=== PATIENT | female | born 1985 | race Caucasian/White ===

== ENCOUNTER 2019-04-04 07:57 | Emergency (ER) | payer SELFPAY ==
[~2019-04-04] VITALS: Ht 152.4 cm; Wt 59.0 kg
[2019-04-04] MEDS ORDERED: ASPIRIN 81 MG CHEW (CHILDREN'S ASA) PO STA (08:16)
[2019-04-04] MEDS ORDERED: NS IV 1000 ML 1,000 ML IV ONE (08:16)
[2019-04-04 08:25] LABS: HEMOGLOBIN 12.2 G/DL (11.5-16.0); WHITE BLOOD COUNT 10.8 10^3/uL (4.3-11.0)
[2019-04-04] MEDS ORDERED: RT-ALBUTEROL/IPRATROPIUM 3 ML (DUONEB) VIAL ONE (08:25)
[2019-04-04 08:26] LABS: BASOPHILS % (AUTO) 0 % (0-10); EOSINOPHILS # (AUTO) 0.3 10^3/uL (0.0-0.3); EOSINOPHILS % (AUTO) 3 % (0-10); HEMATOCRIT 36 % (35-52); LYMPHOCYTES # (AUTO) 2.3 X 10^3 (1.0-4.0); LYMPHOCYTES % (AUTO) 22 % (12-44); MEAN CORPUSCULAR HEMOGLOBIN 27 PG (25-34); MEAN CORPUSCULAR HGB CONC 34 G/DL (32-36); MEAN CORPUSCULAR VOLUME 80 FL (80-99); MEAN PLATELET VOLUME 10.4 FL (7.4-10.4); MONOCYTES % (AUTO) 9 % (0-12); NEUTROPHILS # (AUTO) 7.1 X 10^3 (1.8-7.8); NEUTROPHILS % (AUTO) 66 % (42-75); PLATELET COUNT 292 10^3/uL (130-400)
[2019-04-04] MEDS ORDERED: RT-ALBUTEROL/IPRATROPIUM 3 ML (DUONEB) VIAL INH ONE (08:30)
[2019-04-04] MEDS ORDERED: LORazepam INJ 2 MG/ML (ATIVAN) VIAL IVP ONE (08:30)
--- NOTE | 2019-04-04 08:35 | ED Chest Pain ---
General Chief Complaint: Chest Pain Stated Complaint: CHEST PAIN Nursing Triage Note: PT CO OF CHEST PAIN X 4 DAYS, PT HAS FREQUENT COUGH. PT STATES C/P RAIDATES FROM L CHEST TO L LEG. Nursing Sepsis Screen: No Definite Risk Source: patient Exam Limitations: no limitations History of Present Illness Date Seen by Provider: Apr 04, 2019 Time Seen by Provider: 08:11 Initial Comments Here with report of left-sided chest pain that radiates down the chest to the leg. Associated with cough that has been going on for 4 days. She is quite anxious and report shortness of breath. States that she has vegetations on her heart valve and was told that if she ever had breathing problems that it may be related to that. She apparently had an extended stay at in the past for this. Complains of tingling to her hands and legs and is hyperventilating. Timing/Duration: changing over time, 3-4 days Severity/Quality: moderate Location: central (left-sided) Radiation: other (left lower chest, abdomen and leg on the left) Activities at Onset: none Prior CP/Workup: echocardiography ASA po PST SUPERVISOR: No NTG SL PST SUPERVISOR: No Associated Symptoms: abdominal pain; No back pain, No diaphoresis, No fever/chills; nausea/vomiting, shortness of breath Allergies and Home Medications Allergies Coded Allergies: No Known Drug Allergies (Unverified , 04/04/19) Home Medications No Active Prescriptions or Reported Meds Patient Home Medication List Home Medication List Reviewed: Yes Review of Systems Review of Systems Constitutional: see HPI, chills; No fever EENTM: Nose Congestion; No Throat Pain Respiratory: Cough, Shortness of Air, Wheezing Cardiovascular: Chest Pain; Denies Edema; Lightheadedness, Syncope Gastrointestinal: Abdominal Pain; Denies Diarrhea, Denies Nausea Genitourinary: No Symptoms Reported Musculoskeletal: No muscle stiffness; muscle weakness Skin: no symptoms reported Psychiatric/Neurological: See HPI, Anxiety, Tingling Endocrine: No Symptoms Reported All Other Systems Reviewed Negative Unless Noted: Yes Past Lwaussm-Cexjyt-Mhvawf Hx Past Med/Social Hx: Reviewed Nursing Past Med/Soc Hx Patient Social History Alcohol Use: Occasionally Uses Recreational Drug Use: No Smoking Status: Current Everyday Smoker Recent Foreign Travel: No Contact w/Someone Who Travel: No Recent Infectious Disease Expo: No Recent Hopitalizations: No Seasonal Allergies Seasonal Allergies: No Past Medical History Surgeries: No Respiratory: No Cardiac: Yes Endocarditis, Valvular Heart Disease Neurological: No : No (IUD) Genitourinary: No Musculoskeletal: No Endocrine: No HEENT: No Cancer: No Psychosocial: No Integumentary: No Family Medical History Reviewed Nursing Family Hx No Pertinent Family Hx Physical Exam Vital Signs Vital Signs - First Documented 04/04/19 08:00 Temp 97.9 Pulse 85 Resp 18 B/P (MAP) 125/79 (94) Pulse Ox 98 O2 Delivery Room Air Capillary Refill : Less Than 3 Seconds Height, Weight, BMI Height: 5'0" Weight: 130lbs. oz. 58.243728et; BMI Method:Stated General Appearance: WD/WN, Moderate Distress (anxious) HEENT: PERRL/EOMI, Pharyngeal Erythema Neck: Normal Inspection, Non Tender, Supple Respiratory: Expiration, Wheezing (few Scattered), Other (tachypnea) Cardiovascular: Regular Rate, Rhythm, No Murmur Gastrointestinal: Non Tender, Soft Extremity: Normal Range of Motion, Non Tender Neurologic/Psychiatric: Alert, Oriented x3 Skin: Normal Color, Warm/Dry Focused Exam Lactate Level 04/04/19 10:55: Lactic Acid Level 0.98 Lactic Acid Level Laboratory Tests Test 04/04/19 10:55 Lactic Acid Level 0.98 MMOL/L (0.50-2.00) Progress/Results/Core Measures Results/Orders Lab Results Laboratory Tests Test 04/04/19 08:10 04/04/19 09:05 04/04/19 10:20 04/04/19 10:55 Range/Units White Blood Count 10.8 4.3-11.0 10^3/uL Red Blood Count 4.57 4.35-5.85 10^6/uL Hemoglobin 12.2 11.5-16.0 G/DL Hematocrit 36 35-52 % Mean Corpuscular Volume 80 80-99 FL Mean Corpuscular Hemoglobin 27 25-34 PG Mean Corpuscular Hemoglobin Concent 34 32-36 G/DL Red Cell Distribution Width 19.0 H 10.0-14.5 % Platelet Count 292 130-400 10^3/uL Mean Platelet Volume 10.4 7.4-10.4 FL Neutrophils (%) (Auto) 66 42-75 % Lymphocytes (%) (Auto) 22 12-44 % Monocytes (%) (Auto) 9 0-12 % Eosinophils (%) (Auto) 3 0-10 % Basophils (%) (Auto) 0 0-10 % Neutrophils # (Auto) 7.1 1.8-7.8 X 10^3 Lymphocytes # (Auto) 2.3 1.0-4.0 X 10^3 Monocytes # (Auto) 1.0 0.0-1.0 X 10^3 Eosinophils # (Auto) 0.3 0.0-0.3 10^3/uL Basophils # (Auto) 0.0 0.0-0.1 10^3/uL Prothrombin Time 14.0 12.2-14.7 SEC INR Comment 1.0 0.8-1.4 Activated Partial Thromboplast Time 34 24-35 SEC D-Dimer 0.68 H 0.00-0.49 UG/ML Sodium Level 141 135-145 MMOL/L Potassium Level 3.8 3.6-5.0 MMOL/L Chloride Level 109 H 98-107 MMOL/L Carbon Dioxide Level 20 L 21-32 MMOL/L Anion Gap 12 5-14 MMOL/L Blood Urea Nitrogen 6 L 7-18 MG/DL Creatinine 0.67 0.60-1.30 MG/DL Estimat Glomerular Filtration Rate > 60 BUN/Creatinine Ratio 9 Glucose Level 85 70-105 MG/DL Calcium Level 8.9 8.5-10.1 MG/DL Corrected Calcium 9.1 8.5-10.1 MG/DL Magnesium Level 1.9 1.6-2.4 MG/DL Total Bilirubin 0.2 0.1-1.0 MG/DL Aspartate Amino Transf (AST/SGOT) 92 H 5-34 U/L Alanine Aminotransferase (ALT/SGPT) 102 H 0-55 U/L Alkaline Phosphatase 101 40-136 U/L Myoglobin 33.7 10.0-92.0 NG/ML Troponin I < 0.028 <0.028 NG/ML Total Protein 7.8 6.4-8.2 GM/DL Albumin 3.8 3.2-4.5 GM/DL Serum Test, Qualitative NEGATIVE NEGATIVE Erythrocyte Sedimentation Rate 30 H 0-20 MM/HR C-Reactive Protein High Sensitivity 2.87 H 0.00-0.50 MG/DL Lipase 9 8-78 U/L Urine Color YELLOW Urine Clarity CLEAR Urine pH 7 5-9 Urine Specific Sunshine 1.010 L 1.016-1.022 Urine Protein NEGATIVE NEGATIVE Urine Glucose (UA) NEGATIVE NEGATIVE Urine Ketones 2+ H NEGATIVE Urine Nitrite NEGATIVE NEGATIVE Urine Bilirubin NEGATIVE NEGATIVE Urine Urobilinogen NORMAL NORMAL MG/DL Urine Leukocyte Esterase 1+ H NEGATIVE Urine RBC (Auto) 2+ H NEGATIVE Urine RBC 0-2 /HPF Urine WBC 2-5 /HPF Urine Squamous Epithelial Cells 5-10 /HPF Urine Crystals NONE /LPF Urine Bacteria MODERATE H /HPF Urine Casts NONE /LPF Urine Mucus NEGATIVE /LPF Urine Culture Indicated YES Urine Opiates Screen POSITIVE H NEGATIVE Urine Oxycodone Screen POSITIVE H NEGATIVE Urine Methadone Screen NEGATIVE NEGATIVE Urine Propoxyphene Screen NEGATIVE NEGATIVE Urine Barbiturates Screen NEGATIVE NEGATIVE Ur Tricyclic Antidepressants Screen NEGATIVE NEGATIVE Urine Phencyclidine Screen NEGATIVE NEGATIVE Urine Amphetamines Screen POSITIVE H NEGATIVE Urine Methamphetamines Screen NEGATIVE NEGATIVE Urine Benzodiazepines Screen POSITIVE H NEGATIVE Urine Cocaine Screen NEGATIVE NEGATIVE Urine Cannabinoids Screen POSITIVE H NEGATIVE Lactic Acid Level 0.98 0.50-2.00 MMOL/L Micro Results Microbiology 04/04/19 Blood Culture - Preliminary, Resulted No growth 04/04/19 Blood Culture - Preliminary, Resulted No growth 04/04/19 Urine Culture - Preliminary, Resulted Enterobacter aerogenes My Orders Orders - VIJAY FLORES MD Cbc With Automated Diff (04/04/19 08:16) Magnesium (04/04/19 08:16) Chest 1 View, Ap/Pa Only (04/04/19 08:16) Ekg Tracing (04/04/19 08:16) Cardiac Profile 1 (04/04/19 08:16) Comprehensive Metabolic Panel (04/04/19 08:16) Myoglobin Serum (04/04/19 08:16) Protime With Inr (04/04/19 08:16) Partial Thromboplastin Time (04/04/19 08:16) O2 (04/04/19 08:16) Monitor-Rhythm Ecg Trace Only (04/04/19 08:16) Ed Iv/Invasive Line Start (04/04/19 08:16) Fibrin Degradation Products (04/04/19 08:16) Lorazepam Injection (Ativan Injection) (04/04/19 08:30) Ns Iv 1000 Ml (Sodium Chloride 0.9%) (04/04/19 08:16) Aspirin Chewable Tablet (Baby Aspirin Ch (04/04/19 08:16) Albuterol/Ipra Inhalation Soln (Duoneb I (04/04/19 08:30) Svn Small Volume Nebulizer (04/04/19 08:25) Albuterol/Ipra Inhalation Soln (Duoneb I (04/04/19 08:25) Ct Angio Chest W (04/04/19 08:58) Iohexol Injection (Omnipaque 350 Mg/Ml 1 (04/04/19 09:15) Received Contrast (Hold Metformin- Contr (04/04/19 09:15) Ns (Ivpb) (Sodium Chloride 0.9% Ivpb Bag (04/04/19 09:15) Ketorolac Injection (Toradol Injection) (04/04/19 09:06) Ketorolac Injection (Toradol Injection) (04/04/19 08:57) Hcg,Qualitative Serum (04/04/19 09:12) Morphine Injection (Morphine Injection (04/04/19 09:15) Morphine Injection (Morphine Injection (04/04/19 09:07) Hs C Reactive Protein (04/04/19 09:16) Erythrocyte Sedimentation Rate (04/04/19 09:16) Drug Screen Stat (Urine) (04/04/19 09:16) Lipase (04/04/19 09:17) Ua Culture If Indicated (04/04/19 09:17) Morphine Injection (Morphine Injection (04/04/19 10:45) Lactic Acid Analyzer (04/04/19 10:36) Blood Culture (04/04/19 10:36) Urine Culture (04/04/19 10:20) Echo W Doppler/Color Flow (04/04/19 11:29) Hydromorphone Injection (Dilaudid Inject (04/04/19 13:30) Ceftriaxone For Iv Use (Rocephin For I (04/04/19 13:45) Medications Given in ED Vital Signs/I&O 04/04/19 04/04/19 04/04/19 04/04/19 08:00 08:00 08:35 15:28 Temp 97.9 Pulse 85 72 Resp 18 18 B/P (MAP) 125/79 (94) 96/62 (73) Pulse Ox 98 98 98 O2 Delivery Room Air Room Air Room Air Blood Pressure Mean: 94 Progress Progress Note : Progress Note Seen and evaluated. IV, labs, EKG and chest x-ray ordered. ASA 324 mg ordered. Normal saline 1 L bolus. Ativan 0.5 mg IV and DuoNeb ordered. Monitor patient. 0940: Patient's quite agitated. Complaining of pain to her left hip now. She is very concerned stating that her provider is not listening to her and that were not doing a workup. I did try to explain to her the extensive workup that we are doing regarding her care. She is still agitated but tolerating. She is quite concerned about the heart valve vegetations that she's had in the past that she did not follow-up on and is concerned that that might be a problem. We will get CT angiogram of the chest to evaluate for pulmonary embolism as her d-dimer is slightly elevated and because of her concerns of shortness of breath. She did get morphine 5 mg IV for pain after Toradol [address] Monitor patient. 1036: CT does have some findings concerning for infiltrates especially in the right lung. This does raise concerns for septic emboli. Lactic acid and blood cultures ordered pending final read of CT. 1129: We will get an echocardiogram to evaluate tricuspid valve. Patient still complaining of pain but feeling better. 1235: I did discuss the case with Dr. Suggs, cardiology on- call who was read the echocardiogram. Preliminary read shows the tricuspid vegetation is 1 cm x 0.4 cm with regurg and pulmonary pressure of 35 and EF of 60%. I did discuss with the patient regarding her drug screen. She admits to taking 1 Adderall a few days ago and she had left over oxycodone from her last hospitalization at and took one of those as well due to the pain. 1250: Patient exceeds our level of care secondary to concerns related to vegetation of the heart valve and septic emboli. She has previously been at and that is the closest Center with all capability concerning her needs. I have called them and spoke with the triage nurse. We will see if they will accept for transfer. 1344: called back and patient has been accepted by Dr. Leslie Arnold. Pending bed assignment. I did ask about antibiotics earlier and she was previously on Ancef. We will initiate Rocephin 1 g IV now. Patient did get order for Dilaudid for pain. 1400: I have discussed all of this with the patient and family and they are and agreement for transfer and appreciative of care. 1432: Bed received. We will activate EMS. Initial ECG Impression Date: Apr 04, 2019 Initial ECG Impression Time: 08:04 Initial ECG Rate: 81 Initial ECG Rhythm: Normal Sinus Comment Sinus rhythm with left atrial abnormality. No evidence of ST elevation RI. No previous available for comparison. Interpreted by me. Diagnostic Imaging Diagonstic Imaging: Xray Plain Films/CT/US/NM/MRI: chest Comments [facility], [place] NAME: BRINDA LIZ [facility] REC#: [id number] PT STATUS: REG ER : 1985 PHYSICIAN: VIJAY FLORES MD ADMIT DATE: 04/04/19/ER Draft Date of Exam:04/04/19 CHEST 1 VIEW, AP/PA ONLY INDICATION: Left-sided chest pain. FINDINGS: Portable exam. The lungs are well-aerated and clear. Heart is not enlarged. No pulmonary edema. No hilar adenopathy. No pneumothorax or pleural effusions. No bony abnormalities. IMPRESSION: Normal portable chest. Dictated on workstation # [id number] Dict: 04/04/19 0854 Trans: 04/04/19 0901 VITALIY [id number] Interpreted by: LAVERN RAMIREZ MD Electronically signed by: Diagonstic Imaging: CT Plain Films/CT/US/NM/MRI: chest Comments NAME: BRINDA LIZ [facility] REC#: [id number] PT STATUS: DEP ER : 1985 PHYSICIAN: VIJAY FLORES MD ADMIT DATE: 04/04/19/ER Signed Date of Exam: 04/04/19 CT ANGIO CHEST W PROCEDURE: CT angiography of the chest with contrast. TECHNIQUE: Multiple contiguous axial images were obtained through the chest after uneventful bolus administration of intravenous contrast. 3D reconstructed CTA MIP acquisitions were also performed. Auto Exposure Controls were utilized during the CT exam to meet ALARA standards for radiation dose reduction. INDICATION: Chest pain and cough. FINDINGS: There is good opacification of the pulmonary arteries without intraluminal filling defect identified. There is mild scattered groundglass density within the right upper lobe with minimal involvement of the left upper and lower lobes. There is no evidence of focal consolidation or discrete mass identified. There is mild prominence of right hilar lymph nodes. No definite pathologic adenopathy is identified in the thorax. There is residual density at the level of the thymus. There is no significant pleural or pericardial fluid. IMPRESSION: There is no CTA evidence of pulmonary embolism. Mild patchy areas of groundglass opacities are most pronounced in the right upper lobe and likely reflect pneumonitis or atypical pneumonia. Clinical correlation would be of use. Dictated by: Dictated on workstation # [id number] Dict: 04/04/19 1013 Trans: 04/04/197 Interpreted by: DEBORAH GOSS MD Electronically signed by: DEBORAH GOSS MD 04/04/191656 Departure Impression Primary Impression: Endocarditis of tricuspid valve Additional Impressions: Septic embolism Pulmonary infiltrates Chest pain Qualified Codes: R07.9 - Chest pain, unspecified Left hip pain Disposition: XFER SHT-TRM HOSP Condition: Stable Transfer Time Spoke to Accepting Phy: 13:44 Transfer Facility: [place], [place], Dr. Arnold excepting Method of Transfer: EMS Departure-Patient Inst. Scripts No Active Prescriptions or Reported Meds VIJAY FLORES MD Apr 04, 2019 08:35
[2019-04-04 08:42] LABS: CARBON DIOXIDE 20 MMOL/L (21-32); CHLORIDE 109 MMOL/L (98-107); CREATININE SERUM 0.67 MG/DL (0.60-1.30); POTASSIUM 3.8 MMOL/L (3.6-5.0); SODIUM 141 MMOL/L (135-145)
[2019-04-04 08:43] LABS: ALANINE AMINOTRANSFERASE 102 U/L (0-55); ALBUMIN 3.8 GM/DL (3.2-4.5); ALKALINE PHOSPHATASE 101 U/L (40-136); BILIRUBIN,TOTAL 0.2 MG/DL (0.1-1.0); BUN/CREATININE RATIO 9; CALCIUM 8.9 MG/DL (8.5-10.1); GFR ESTIMATED > 60; GLUCOSE 85 MG/DL (70-105); MAGNESIUM 1.9 MG/DL (1.6-2.4); TOTAL PROTEIN 7.8 GM/DL (6.4-8.2)
[2019-04-04] MEDS ORDERED: KETOROLAC 30 MG/ML VIAL ONE (08:57)
--- NOTE | 2019-04-04 09:01 | Diagnostic Imaging Report ---
INDICATION: Left-sided chest pain. FINDINGS: Portable exam. The lungs are well-aerated and clear. Heart is not enlarged. No pulmonary edema. No hilar adenopathy. No pneumothorax or pleural effusions. No bony abnormalities. IMPRESSION: Normal portable chest. Dictated by: Dictated on workstation # [id number]
[2019-04-04] MEDS ORDERED: KETOROLAC 30 MG/ML VIAL IVP STA (09:06)
[2019-04-04] MEDS ORDERED: morphine INJ 10 MG/ML 1ML (SYR OR VIAL) ONE (09:07)
[2019-04-04] MEDS ORDERED: morphine INJ 10 MG/ML 1ML (SYR OR VIAL) IVP ONE ×2 (09:15→10:45)
[2019-04-04] MEDS ORDERED: HOLD METFORMIN - RECEIVED CONTRAST 20 ML VIAL IV SCH (09:15)
[2019-04-04] MEDS ORDERED: IOHEXOL 350 MG/ML 100 ML (OMNIPAQUE 350) VIAL IV ONE (09:15)
[2019-04-04] MEDS ORDERED: NS 100 ML (IVPB) BAG IV ONE (09:15)
--- NOTE | 2019-04-04 10:20 | Diagnostic Imaging Report ---
PROCEDURE: CT angiography of the chest with contrast. TECHNIQUE: Multiple contiguous axial images were obtained through the chest after uneventful bolus administration of intravenous contrast. 3D reconstructed CTA MIP acquisitions were also performed. Auto Exposure Controls were utilized during the CT exam to meet ALARA standards for radiation dose reduction. INDICATION: Chest pain and cough. FINDINGS: There is good opacification of the pulmonary arteries without intraluminal filling defect identified. There is mild scattered groundglass density within the right upper lobe with minimal involvement of the left upper and lower lobes. There is no evidence of focal consolidation or discrete mass identified. There is mild prominence of right hilar lymph nodes. No definite pathologic adenopathy is identified in the thorax. There is residual density at the level of the thymus. There is no significant pleural or pericardial fluid. IMPRESSION: There is no CTA evidence of pulmonary embolism. Mild patchy areas of groundglass opacities are most pronounced in the right upper lobe and likely reflect pneumonitis or atypical pneumonia. Clinical correlation would be of use. Dictated by: Dictated on workstation # [id number]
[2019-04-04 10:31] LABS: BILIRUBIN,URINE NEGATIVE (NEGATIVE); CLARITY,URINE CLEAR; COLOR,URINE YELLOW; GLUCOSE, URINE (UA) NEGATIVE (NEGATIVE); KETONES,URINE 2+ (NEGATIVE); LEUKOCYTE ESTERASE ,URINE 1+ (NEGATIVE); NITRITE,URINE NEGATIVE (NEGATIVE); PH,URINE 7 (5-9); PROTEIN,URINE NEGATIVE (NEGATIVE); UROBILINOGEN,URINE NORMAL (NORMAL)
[2019-04-04 10:45] LABS: AMPHETAMINE SCREEN, URINE POSITIVE (NEGATIVE); BARBITURATE SCREEN URINE NEGATIVE (NEGATIVE); BENZODIAZEPINES SCREEN URINE POSITIVE (NEGATIVE); CANNABINOID SCREEN, URINE POSITIVE (NEGATIVE); COCAINE SCREEN URINE NEGATIVE (NEGATIVE); METHADONE STAT NEGATIVE (NEGATIVE); METHAMPHETAMINE SCREEN URINE S NEGATIVE (NEGATIVE); OPIATE SCREEN URINE POSITIVE (NEGATIVE); TRICYCLIC ANTIDEPRESSANTS SCRE NEGATIVE (NEGATIVE)
[2019-04-04 10:46] LABS: OXYCODONE STAT POSITIVE (NEGATIVE); PROPOXYPHENE STAT NEGATIVE (NEGATIVE)
[2019-04-04 10:49] LABS: RBC,URINE 0-2 /HPF
[2019-04-04 10:50] LABS: BACTERIA,URINE MODERATE /HPF
--- NOTE | 2019-04-04 10:50 | NUR ---
CONSENT FOR RELEASE OF MEDICAL RECORDS SIGNED BY PT
--- NOTE | 2019-04-04 11:30 | NUR ---
PT RESTING IN BED PLAYING ON PHONE.
--- NOTE | 2019-04-04 13:14 | NUR ---
1300 DR FLORES AWAITING FOR CONSULTATION FROM [facility]. PT CONT TO REST IN BED NO CO AT THIS X
[2019-04-04] MEDS ORDERED: HYDROmorphone 2 MG/ML VIAL (DILAUDID) IV ONE (13:30)
[2019-04-04] MEDS ORDERED: cefTRIAXone FOR IV USE 1,000 MG in WATER (STERILE) FOR INJECTION 10 ML IV ONE (13:45)
--- NOTE | 2019-04-04 14:00 | NUR ---
CONSENT FOR TRANSFER SIGNED BY PT. AWAITING BED ASSIGNMENT
--- NOTE | 2019-04-04 14:45 | NUR ---
REPORT CALLED TO ERIC JOHNSON RN
--- NOTE | 2019-04-04 15:00 | NUR ---
EMS NOTIFIED OF TRANSFER
[2019-04-04 15:28] VITALS: BP 96/62
== END 2019-04-04 15:28 | disposition short-term general hospital (02) ==
LOC: ER 08:01
DX: I07.9 Rheumatic tricuspid valve disease, unspecified (principal); I76 Septic arterial embolism; R91.8 Other nonspecific abnormal finding of lung field; M25.552 Pain in left hip; F17.200 Nicotine dependence, unspecified, uncomplicated
CPT/HCPCS: 36415; 71045; 71275; 80053; 80306; 81000; 83605; 83690; 83735; 83874; 84484; 84703; 85025; 85379; 85610; 85652; 85730; 86141; 87040; 87077; 87088; 87186; 93005; 93041; 93306; 94640

== ENCOUNTER → 2020-01-15 | Outpatient (CLI) | payer SELFPAY | LOC: CARD 09:36 | PROVIDERS: ATTEND Pediatrics | DX: Z86.79 Personal history of other diseases of the circulatory system (principal) | CPT/HCPCS: 93306 ==

== ENCOUNTER → 2020-02-27 | Outpatient (CLI) | payer SELFPAY | LOC: LAB 11:15 | PROVIDERS: ATTEND Pediatrics | DX: B18.2 Chronic viral hepatitis C (principal) | CPT/HCPCS: 87040 ==

== ENCOUNTER 2020-07-09 19:03 | Emergency (ER) | payer MEDICAID ==
[~2020-07-09] VITALS: Ht 154.9 cm; Wt 74.8 kg
[2020-07-09] MEDS ORDERED: KETAMINE/NaCl 50 MG/5 ML SYRINGE (ED ONLY) IV ONE (19:45)
[2020-07-09] MEDS ORDERED: LORazepam INJ 2 MG/ML (ATIVAN) VIAL IVP ONE (19:45)
[2020-07-09] MEDS ORDERED: NS (IVPB) 250 ML IV ONE (19:45)
--- NOTE | 2020-07-09 19:51 | ED Back Pain ---
General Stated Complaint: INABILITY TO WALK/L LEG PAIN/DIZZINESS/NUMB IN TOE Source of Information: Patient Exam Limitations: No Limitations History of Present Illness Date Seen by Provider: Jul 09, 2020 Time Seen by Provider: 19:45 Initial Comments To ER with c/o low back pain that radiates down the left leg to the middle three toes for 1 year and shes tired of dealing with it. For the past 1 week the pain has been unbearable. She has rods in her left leg for many years. No loss of bowel or bladder control no loss of sensation of genitals no fevers or chills. Location: Lumbar Spine, Other (left leg. ) Timing/Duration: Other (1 year) Severity: Moderate Pain/Injury Location: Back Associated Symptoms: denies symptoms Allergies and Home Medications Allergies Coded Allergies: No Known Drug Allergies (Unverified , 04/04/19) Home Medications Methocarbamol 750 Mg Tablet, 750 MG PO Q4H PRN for PAIN-SEVERE (8-10) Prescribed by: FRANK TOWNSEND on 07/09/202107 Prednisone 20 Mg Tab, 40 MG PO DAILY Prescribed by: FRANK TOWNSEND on 07/09/202107 Patient Home Medication List Home Medication List Reviewed: Yes Review of Systems Constitutional: see HPI; No chills, No fever EENTM: see HPI Respiratory: no symptoms reported Cardiovascular: no symptoms reported Genitourinary: no symptoms reported Musculoskeletal: see HPI, back pain Skin: no symptoms reported Psychiatric/Neurological: No Symptoms Reported Past Pibtavc-Uxzksz-Wfznpu Hx Patient Social History Recent Foreign Travel: No Contact w/Someone Who Travel: No Recent Hopitalizations: No Seasonal Allergies Seasonal Allergies: No Past Medical History Surgeries: No Respiratory: No Cardiac: Yes Endocarditis, Valvular Heart Disease Neurological: No Genitourinary: No Gastrointestinal: Yes (HEP C) Hepatitis Musculoskeletal: No Endocrine: No HEENT: No Cancer: No Psychosocial: No Integumentary: No Family Medical History No Pertinent Family Hx Physical Exam Vital Signs Capillary Refill : Height, Weight, BMI Height: 5'0" Weight: 130lbs. oz. 58.186189dl; BMI Method:Stated General Appearance: WD/WN, Anxious, Other (Initially screaming and yelling that she could not come back with her mother. Her mother was also screaming and yelling at staff that she could not come back with the patient.) Neck: Full Range of Motion, Normal Inspection Respiratory: No Accessory Muscle Use, No Respiratory Distress Gastrointestinal: Normal Bowel Sounds, Non Tender, Soft Extremity: Normal Capillary Refill, Normal Inspection, Other (2+ dorsalis pedis left arm) Neurologic/Psychiatric: Alert, Oriented x3 Skin: Normal Color, Warm/Dry Progress/Results/Core Measures Results/Orders Lab Results Laboratory Tests Test 07/09/20 19:50 07/09/20 21:25 Range/Units White Blood Count 16.9 H 4.3-11.0 10^3/uL Red Blood Count 4.22 3.80-5.11 10^6/uL Hemoglobin 12.6 11.5-16.0 g/dL Hematocrit 38 35-52 % Mean Corpuscular Volume 89 80-99 fL Mean Corpuscular Hemoglobin 30 25-34 pg Mean Corpuscular Hemoglobin Concent 34 32-36 g/dL Red Cell Distribution Width 14.6 H 10.0-14.5 % Platelet Count 406 H 130-400 10^3/uL Mean Platelet Volume 10.3 9.0-12.2 fL Immature Granulocyte % (Auto) 0 % Neutrophils (%) (Auto) 59 42-75 % Lymphocytes (%) (Auto) 29 12-44 % Monocytes (%) (Auto) 8 0-12 % Eosinophils (%) (Auto) 4 0-10 % Basophils (%) (Auto) 1 0-10 % Neutrophils # (Auto) 10.0 H 1.8-7.8 10^3/uL Lymphocytes # (Auto) 4.8 H 1.0-4.0 10^3/uL Monocytes # (Auto) 1.3 H 0.0-1.0 10^3/uL Eosinophils # (Auto) 0.7 H 0.0-0.3 10^3/uL Basophils # (Auto) 0.1 0.0-0.1 10^3/uL Immature Granulocyte # (Auto) 0.1 0.0-0.1 10^3/uL Neutrophils % (Manual) 60 % Lymphocytes % (Manual) 27 % Monocytes % (Manual) 5 % Eosinophils % (Manual) 4 % Band Neutrophils 4 % Blood Morphology Comment NORMAL Erythrocyte Sedimentation Rate 21 H 0-20 MM/HR Sodium Level 140 135-145 MMOL/L Potassium Level 3.9 3.6-5.0 MMOL/L Chloride Level 110 H 98-107 MMOL/L Carbon Dioxide Level 16 L 21-32 MMOL/L Anion Gap 14 5-14 MMOL/L Blood Urea Nitrogen 10 7-18 MG/DL Creatinine 0.75 0.60-1.30 MG/DL Estimat Glomerular Filtration Rate > 60 BUN/Creatinine Ratio 13 Glucose Level 80 70-105 MG/DL Calcium Level 9.1 8.5-10.1 MG/DL Corrected Calcium 9.1 8.5-10.1 MG/DL Total Bilirubin 0.2 0.1-1.0 MG/DL Aspartate Amino Transf (AST/SGOT) 32 5-34 U/L Alanine Aminotransferase (ALT/SGPT) 37 0-55 U/L Alkaline Phosphatase 69 40-136 U/L C-Reactive Protein High Sensitivity 2.24 H 0.00-0.50 MG/DL Total Protein 8.2 6.4-8.2 GM/DL Albumin 4.0 3.2-4.5 GM/DL Procalcitonin 0.02 <0.10 NG/ML Serum Test, Qualitative NEGATIVE NEGATIVE My Orders Orders - FRANK TOWNSEND APRN Cbc With Automated Diff (07/09/20 19:40) Comprehensive Metabolic Panel (07/09/20 19:40) Erythrocyte Sedimentation Rate (07/09/20 19:40) Hs C Reactive Protein (07/09/20 19:40) Hcg,Qualitative Serum (07/09/20 19:40) Ed Iv/Invasive Line Start (07/09/20 19:40) Drug Screen Stat (Urine) (07/09/20 19:40) Ua Culture If Indicated (07/09/20 19:40) Lorazepam Injection (Ativan Injection) (07/09/20 19:45) Ketamine Syringe (Ed Only) (Ketamine Syr (07/09/20 19:45) Ns (Ivpb) (Sodium Chloride 0.9%) (07/09/20 19:45) Ct Lumbar Spine Wo (07/09/20 19:40) Manual Differential (07/09/20 19:50) Ns Iv 1000 Ml (Sodium Chloride 0.9%) (07/09/20 20:45) Ns Iv 1000 Ml (Sodium Chloride 0.9%) (07/09/20 20:45) Lorazepam Injection (Ativan Injection) (07/09/20 20:45) Rx-Hydrocodone/Apap 5-325 Mg (Rx-Vicodin (07/09/20 21:15) Fentanyl Injection (Sublimaze Injection (07/09/20 21:15) Procalcitonin (Pct) (07/09/20 21:10) Medications Given in ED Current Medications Medications Dose Ordered Sig/[place] Route Start Time Stop Time Status Last Admin Dose Admin Acetaminophen/ Hydrocodone Bitart 1 ea Q4H PRN PO 07/09/20 21:15 07/09/20 21:10 1 EA Fentanyl Citrate 50 mcg ONCE ONCE IVP 07/09/20 21:15 07/09/20 21:16 DC 07/09/20 21:13 50 MCG Ketamine HCl 25 mg ONCE ONCE IV 07/09/20 19:45 07/09/20 19:46 DC 07/09/20 20:21 25 MG Lorazepam 1 mg ONCE ONCE IVP 07/09/20 19:45 07/09/20 19:46 DC 07/09/20 20:22 1 MG Lorazepam 1 mg ONCE PRN IVP 07/09/20 20:45 07/09/20 20:48 1 MG Sodium Chloride 250 ml @ 999 mls/hr Q16M ONCE IV 07/09/20 19:45 07/09/20 20:00 DC 07/09/20 20:22 999 MLS/HR Departure Communication (Admissions) 6-spoke with Dr. Walker, she took down the patient's name and will facilitate very close follow-up for the patient to schedule MRI of the low back Impression Primary Impression: Lumbar radiculopathy Disposition: 01 HOME, SELF-CARE Condition: Stable Departure-Patient Inst. Decision time for Depature: 21:05 Referrals: SAMUEL WILLIAM BETHANY N MD GRAHAM,MARITZA CHIDL MD NO,LOCAL PHYSICIAN (PCP) Primary Care Physician Patient Instructions: Radiculopathy Add. Discharge Instructions: 1. Call one of the spine surgeons listed ([facility]RE[facility] or [facility]) to make an appointment to be seen. Also call [facility] Dr. Walker or [place] or [place] to make an appointment to be seen as soon as possible. Return to ER for any fevers chills or worsening symptoms. Scripts Methocarbamol (Robaxin-750) 750 Mg Tablet 750 MG PO Q4H PRN for PAIN-SEVERE (8-10), #20 TAB Prov: FRANK TOWNSEND APRN 07/09/20 Prednisone (Prednisone) 20 Mg Tab 40 MG PO DAILY, #8 TAB 0 Refills Prov: FRANK TOWNSEND APRN 07/09/20 FRANK TOWNSEND APRN Jul 09, 2020 19:51
[2020-07-09 20:01] LABS: BASOPHILS # (AUTO) 0.1 10^3/uL (0.0-0.1); BASOPHILS % (AUTO) 1 % (0-10); EOSINOPHILS # (AUTO) 0.7 10^3/uL (0.0-0.3); EOSINOPHILS % (AUTO) 4 % (0-10); HEMATOCRIT 38 % (35-52); HEMOGLOBIN 12.6 g/dL (11.5-16.0); LYMPHOCYTES # (AUTO) 4.8 10^3/uL (1.0-4.0); LYMPHOCYTES % (AUTO) 29 % (12-44); MEAN CORPUSCULAR HEMOGLOBIN 30 pg (25-34); MEAN CORPUSCULAR HGB CONC 34 g/dL (32-36); MEAN CORPUSCULAR VOLUME 89 fL (80-99); MEAN PLATELET VOLUME 10.3 fL (9.0-12.2); MONOCYTES # (AUTO) 1.3 10^3/uL (0.0-1.0); MONOCYTES % (AUTO) 8 % (0-12); NEUTROPHILS % (AUTO) 59 % (42-75); PLATELET COUNT 406 10^3/uL (130-400); WHITE BLOOD COUNT 16.9 10^3/uL (4.3-11.0)
--- NOTE | 2020-07-09 20:19 | Diagnostic Imaging Report ---
PROCEDURE: CT lumbar spine without contrast. TECHNIQUE: Multiple contiguous axial images were obtained through the lumbar spine without the use of intravenous contrast. Sagittal and coronal reformations were then performed. Auto Exposure Controls were utilized during the CT exam to meet ALARA standards for radiation dose reduction. INDICATION: Low back pain and left leg pain. No relevant comparison examination available. FINDINGS: Alignment of the lumbar spine is normal. The vertebral body heights are well-maintained. The facets are normally aligned. There is no pars defect. There is no facet joint or disc space widening. There are no CT findings of an acute lumbar fracture or evidence of a suspicious marrow replacing lesion. By CT imaging, there is no significant lower thoracic canal stenosis. Within the lumbar spine, the most advanced canal stenosis appears to be mild to moderate at L4-L5 due to diffuse disc bulging. There is also mild to moderate narrowing of the lateral recesses at that level. There is minimal narrowing of the neural foramen. The visualized portion of the pelvis unremarkable. Paraspinal soft tissues appear within normal limits. There are mild atherosclerotic calcifications within the aorta. The kidneys appear nonobstructed. IMPRESSION: 1. No CT evidence of an acute osseous abnormality. Alignment is normal. 2. There appears to be some slight disc bulging and facet arthropathy at L4-L5 which result in knfa-vq-scpsnnco narrowing of the central canal and lateral recesses. This could be further assessed with follow-up MRI for better characterization. No other findings to suggest significant stenosis are apparent by CT. Dictated by: Dictated on workstation # [id number]
[2020-07-09 20:24] LABS: ALANINE AMINOTRANSFERASE 37 U/L (0-55); ALKALINE PHOSPHATASE 69 U/L (40-136); BILIRUBIN,TOTAL 0.2 MG/DL (0.1-1.0); BUN/CREATININE RATIO 13; CALCIUM 9.1 MG/DL (8.5-10.1); CARBON DIOXIDE 16 MMOL/L (21-32); CHLORIDE 110 MMOL/L (98-107); CREATININE SERUM 0.75 MG/DL (0.60-1.30); GFR ESTIMATED > 60; GLUCOSE 80 MG/DL (70-105); POTASSIUM 3.9 MMOL/L (3.6-5.0); SODIUM 140 MMOL/L (135-145); TOTAL PROTEIN 8.2 GM/DL (6.4-8.2)
[2020-07-09 20:27] LABS: ERYTHROCYTE SEDIMENTATION RATE 21 MM/HR (0-20)
[2020-07-09 20:38] LABS: BAND NEUTROPHILS 4 %; EOSINOPHILS % (MANUAL) 4 %; LYMPHOCYTES % (MANUAL) 27 %; MONOCYTES % (MANUAL) 5 %; NEUTROPHILS % (MANUAL) 60 %; RBC MORPH NORMAL
[2020-07-09] MEDS ORDERED: NS IV 1000 ML 1,000 ML IV SCH ×2 (20:45)
[2020-07-09] MEDS ORDERED: LORazepam INJ 2 MG/ML (ATIVAN) VIAL IVP PRN (20:45)
[2020-07-09] MEDS ORDERED: PRD20T PO (21:08)
[2020-07-09] MEDS ORDERED: METH-313 PO (21:08)
[2020-07-09] MEDS ORDERED: RX-HYDROCODONE/APAP 5/325 MG #4 TAB PK PO PRN (21:15)
[2020-07-09] MEDS ORDERED: fentaNYL INJECTION 100 MCG/2 ML AMP IVP ONE ×2 (21:15→22:30)
[2020-07-09 21:41] LABS: BILIRUBIN,URINE NEGATIVE (NEGATIVE); CLARITY,URINE CLEAR; COLOR,URINE YELLOW; GLUCOSE, URINE (UA) NEGATIVE (NEGATIVE); KETONES,URINE NEGATIVE (NEGATIVE); LEUKOCYTE ESTERASE ,URINE TRACE (NEGATIVE); NITRITE,URINE NEGATIVE (NEGATIVE); PROTEIN,URINE NEGATIVE (NEGATIVE)
[2020-07-09 22:23] LABS: AMPHETAMINE SCREEN, URINE POSITIVE (NEGATIVE); BARBITURATE SCREEN URINE NEGATIVE (NEGATIVE); BENZODIAZEPINES SCREEN URINE POSITIVE (NEGATIVE); CANNABINOID SCREEN, URINE POSITIVE (NEGATIVE); COCAINE SCREEN URINE NEGATIVE (NEGATIVE); METHADONE STAT NEGATIVE (NEGATIVE); METHAMPHETAMINE SCREEN URINE S NEGATIVE (NEGATIVE); OPIATE SCREEN URINE NEGATIVE (NEGATIVE); OXYCODONE STAT NEGATIVE (NEGATIVE); PROPOXYPHENE STAT NEGATIVE (NEGATIVE); TRICYCLIC ANTIDEPRESSANTS SCRE NEGATIVE (NEGATIVE)
[2020-07-09 22:28] LABS: AMORPHOUS SEDIMENT,UR FEW AMOR URATES /LPF; BACTERIA,URINE TRACE /HPF; RBC,URINE 0-2 /HPF; WBC,URINE 0-2 /HPF
[2020-07-09 22:30] VITALS: BP 108/77
[2020-07-10] MEDS ORDERED: PRD20T PO (03:27)
[2020-07-10] MEDS ORDERED: METH-313 PO (03:27)
== END 2020-07-09 22:30 | disposition home or self-care (01) ==
LOC: EDUNIT# 19:03 → ER 19:09
DX: M54.16 Radiculopathy, lumbar region (principal); F41.9 Anxiety disorder, unspecified; Z79.52 Long term (current) use of systemic steroids
CPT/HCPCS: 36415; 72131; 80053; 80306; 81000; 84145; 84703; 85007; 85027; 85652; 86141

== ENCOUNTER 2020-07-10 02:42 | Emergency (ER) | payer MEDICAID ==
[~2020-07-10] VITALS: Ht 155 cm; Wt 75.0 kg
[2020-07-10 02:42] VITALS: BP 111/76
[~2020-07-10 02:42] MED LIST: METH-313 PO; PRD20T PO
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
[2020-07-10] MEDS ORDERED: METH-313 PO (03:27)
[2020-07-10] MEDS ORDERED: PRD20T PO (03:27)
[2020-07-10] MEDS ORDERED: RX-CYCLOBENZAPRINE 10 MG (FLEXERIL) TAB PPK#3 PO STA (03:28)
[2020-07-10] MEDS ORDERED: predniSONE 20 MG TAB PO ONE (03:30)
--- NOTE | 2020-07-10 07:11 | Diagnostic Imaging Report ---
FOOT, LEFT, 3 VIEWS INDICATION: Left foot pain COMPARISON: None available. TECHNIQUE: Three non-weightbearing views of foot were obtained. FINDINGS: No fracture or traumatic malalignment. No evidence of metatarsal stress fracture. No soft tissue gas or radiopaque foreign body. IMPRESSION: 1. No acute fracture or traumatic malalignment. Dictated by: Dictated on workstation # [id number]
--- NOTE | 2020-07-10 07:14 | Diagnostic Imaging Report ---
Indication: Left leg pain. COMPARISON: None available. TECHNIQUE: 2 views of the left femur are obtained. FINDINGS: Long segment intramedullary nail with static interlocking proximal distal screws is in good position within the left femur. The fracture in the mid femoral diaphysis has completely healed. No new fracture. No features of fixation screw loosening. Knee is normal in alignment. No soft tissue gas. IMPRESSION: 1. No acute osseous abnormality of the left thigh. 2. The left femoral shaft fracture is completely healed and IM nail is normal in appearance. Dictated by: Dictated on workstation # [id number]
--- NOTE | 2020-07-10 07:17 | Diagnostic Imaging Report ---
Indication: Left lower leg pain. COMPARISON: None available. TECHNIQUE: 2 views of left tibia and fibula. FINDINGS: No fracture, endosteal scalloping or periosteal reaction. No unintended radiopaque foreign body or soft tissue gas. IMPRESSION: No acute osseous abnormality in the left lower leg. Dictated by: Dictated on workstation # [id number]
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
== END 2020-07-10 03:40 | disposition home or self-care (01) ==
LOC: ER 02:42 → EDUNIT# 02:42 → ER 03:40
DX: M79.605 Pain in left leg (principal); M54.16 Radiculopathy, lumbar region; F17.210 Nicotine dependence, cigarettes, uncomplicated; Z32.02 Encounter for pregnancy test, result negative; Z79.52 Long term (current) use of systemic steroids
CPT/HCPCS: 73552; 73590; 73630

== ENCOUNTER 2020-07-12 16:15 | Emergency (ER) | payer MEDICAID ==
[~2020-07-12] VITALS: Ht 152 cm; Wt 80.0 kg
[2020-07-12 17:11] VITALS: BP 105/64
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
[2020-07-12] MEDS ORDERED: METH-313 PO (18:15)
[2020-07-12] MEDS ORDERED: ORPHENADRINE 60 MG/2 ML (NORFLEX) AMP (ED ONLY) IM ONE (18:15)
[2020-07-12] MEDS ORDERED: PRD20T PO (18:15)
[2020-07-12] MEDS ORDERED: KETOROLAC 60 MG/2 ML VIAL IM ONE (18:15)
== END 2020-07-12 18:35 | disposition home or self-care (01) ==
LOC: EDUNIT# 16:15 → ER 16:16
DX: M54.16 Radiculopathy, lumbar region (principal); F17.210 Nicotine dependence, cigarettes, uncomplicated; Z79.52 Long term (current) use of systemic steroids
CPT/HCPCS: 99284

== ENCOUNTER 2020-12-02 09:11 | Emergency (ER) | payer MEDICAID ==
[~2020-12-02] VITALS: Ht 152 cm; Wt 77.0 kg
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
[2020-12-02] MEDS ORDERED: LIDOCAINE/EPI 2% 1:100,00 (XYLOCAINE) 20 ML VIAL INJ ONE (09:45)
[2020-12-02] MEDS ORDERED: BUPIVACAINE 0.5% 30 ML (SENSORCAINE) VIAL INJ ONE (09:45)
[2020-12-02] MEDS ORDERED: methylPREDNISolone 40 MG/ML (DEPO MEDROL) VIAL IM ONE (09:45)
[2020-12-02] MEDS ORDERED: CYCL10TA9 PO (09:46)
[2020-12-02] MEDS ORDERED: LIDOCAINE 1% INJ 20 ML 20 ML VIAL INJ ONE (10:00)
[2020-12-02 10:20] VITALS: BP 120/88
== END 2020-12-02 10:20 | disposition home or self-care (01) ==
LOC: EDUNIT# 09:11 → ER 09:13
DX: M54.5 Low back pain (principal); F17.210 Nicotine dependence, cigarettes, uncomplicated; Z79.52 Long term (current) use of systemic steroids
CPT/HCPCS: 99282

== ENCOUNTER → 2020-12-26 | Outpatient (CLI) | payer MEDICAID ==
[~2020-12-26] MED LIST changes: +CYCL10TA9 PO
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
== END ==
LOC: RAD 08:45
PROVIDERS: ATTEND Physician Assistant
DX: M47.816 Spondylosis without myelopathy or radiculopathy, lumbar region (principal); M47.817 Spondylosis without myelopathy or radiculopathy, lumbosacral region
CPT/HCPCS: 72148

== ENCOUNTER → 2021-01-03 | Outpatient (CLI) | LOC: LABNPT 06:44 → MERGE 06:44 | PROVIDERS: ATTEND Orthopaedic Surgery | DX: Z01.812 Encounter for preprocedural laboratory examination (principal); Z20.822 Contact with and (suspected) exposure to COVID-19 | CPT/HCPCS: 87635 ==

== ENCOUNTER 2021-01-04 14:45 | Emergency (ER) | payer MEDICAID ==
[~2021-01-04] VITALS: Ht 154.9 cm; Wt 77.2 kg
--- NOTE | 2021-01-04 14:57 | ED General ---
General Stated Complaint: CP Source of Information: Patient Exam Limitations: No Limitations (FRANK TOWNSEND APRN) History of Present Illness Date Seen by Provider: Jan 04, 2021 Time Seen by Provider: 14:57 Initial Comments To ER by EMS from home with reports of chest pain shortness of breath and anxiety that started last night. She states that her is "an ass hole" and her is dying of "endocrine-itis". She states that she herself has almost once of "endocrinitis" Timing/Duration: 1-2 Days Severity: Moderate Associated Systoms: Chest Pain (FRANK TOWNSEND APRN) Allergies and Home Medications Allergies Coded Allergies: No Known Drug Allergies (Unverified , 07/10/20) Home Medications Cyclobenzaprine HCl 10 Mg Tablet, 10 MG PO Q8H PRN for SPASMS Prescribed by: EMELY KABA on 12/02/20 0946 Methocarbamol 750 Mg Tablet, 750 MG PO Q4H PRN for PAIN-SEVERE (8-10) Prescribed by: ESA MANUEL on 07/10/20 0327 Methocarbamol 750 Mg Tablet, 750 MG PO Q6H PRN for PAIN-MODERATE (5-7) Prescribed by: FRANK TOWNSEND on 07/12/201814 Prednisone 20 Mg Tab, 40 MG PO DAILY Prescribed by: ESA MANUEL on 07/10/20 0327 Prednisone 20 Mg Tab, 40 MG PO DAILY Prescribed by: FRANK TOWNSEND on 07/12/201814 Patient Home Medication List Home Medication List Reviewed: Yes (FRANK TOWNSEND APRN) Review of Systems Review of Systems Constitutional: see HPI EENTM: see HPI Respiratory: no symptoms reported Cardiovascular: no symptoms reported Genitourinary: no symptoms reported Musculoskeletal: no symptoms reported Skin: no symptoms reported Psychiatric/Neurological: No Symptoms Reported Hematologic/Lymphatic: No Symptoms Reported (FRANK TOWNSEND APRN) Past Ikdpjln-Tuhewj-Dfkjup Hx Patient Social History Drug of Choice: POT Type Used: Cigarettes 2nd Hand Smoke Exposure: Yes Recent Hopitalizations: No (FRANK TOWNSEND APRN) Seasonal Allergies Seasonal Allergies: No (FRANK TOWNSEND APRN) Past Medical History Surgeries: Yes (LEFT FEMUR OMI/PINS AGE 16) Orthopedic Respiratory: No 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, Valvular Heart Disease 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 Genitourinary: No Gastrointestinal: Yes (HEPATITIS C) Hepatitis Musculoskeletal: Yes (LEFT FEMUR OMI/SCREWS AGE 16; LUMBAR DISC DISEASE) Degenerate Disk Disease, Chronic Back Pain, Fractures Endocrine: No HEENT: No Cancer: No Psychosocial: No Integumentary: No (FRANK TOWNSEND APRN) Family Medical History No Pertinent Family Hx (FRANK TOWNSEND APRN) Physical Exam Vital Signs Vital Signs - First Documented 01/04/21 14:45 Temp 36.9 Pulse 110 Resp 26 B/P (MAP) 130/82 (98) Pulse Ox 97 O2 Delivery Room Air (MIKE WILKERSON MD) Vital Signs Capillary Refill : (FRANK TOWNSEND APRN) Height, Weight, BMI Height: 5'0" Weight: 130lbs. oz. 58.103384yj; 33.00 BMI Method:Stated General Appearance: No Apparent Distress, WD/WN, Anxious Eyes: Bilateral Eye Normal Inspection, Bilateral Eye PERRL Neck: Full Range of Motion, Normal Inspection Respiratory: No Accessory Muscle Use, No Respiratory Distress Cardiovascular: Normal Peripheral Pulses, Tachycardia Gastrointestinal: Non Tender, Soft Extremity: Normal Capillary Refill, Normal Inspection Neurologic/Psychiatric: Alert, Oriented x3 Skin: Normal Color, Warm/Dry (FRANK TOWNSEND APRN) Progress/Results/Core Measures Suspected Sepsis SIRS Temperature: Pulse: Respiratory Rate: Laboratory Tests 01/04/21 14:55: White Blood Count 10.4 Blood Pressure / Mean: Laboratory Tests 01/04/21 14:55: Creatinine 0.72, Platelet Count 424H, Total Bilirubin 0.3 (FRANK TOWNSEND APRN) Results/Orders Lab Results Laboratory Tests Test 01/04/21 14:55 Range/Units White Blood Count 10.4 4.3-11.0 10^3/uL Red Blood Count 4.65 3.80-5.11 10^6/uL Hemoglobin 13.4 11.5-16.0 g/dL Hematocrit 39 35-52 % Mean Corpuscular Volume 85 80-99 fL Mean Corpuscular Hemoglobin 29 25-34 pg Mean Corpuscular Hemoglobin Concent 34 32-36 g/dL Red Cell Distribution Width 17.2 H 10.0-14.5 % Platelet Count 424 H 130-400 10^3/uL Mean Platelet Volume 9.6 9.0-12.2 fL Immature Granulocyte % (Auto) 0 % Neutrophils (%) (Auto) 61 42-75 % Lymphocytes (%) (Auto) 28 12-44 % Monocytes (%) (Auto) 8 0-12 % Eosinophils (%) (Auto) 2 0-10 % Basophils (%) (Auto) 1 0-10 % Neutrophils # (Auto) 6.3 1.8-7.8 10^3/uL Lymphocytes # (Auto) 2.9 1.0-4.0 10^3/uL Monocytes # (Auto) 0.9 0.0-1.0 10^3/uL Eosinophils # (Auto) 0.2 0.0-0.3 10^3/uL Basophils # (Auto) 0.1 0.0-0.1 10^3/uL Immature Granulocyte # (Auto) 0.0 0.0-0.1 10^3/uL D-Dimer 0.27 0.00-0.49 UG/ML Sodium Level 142 135-145 MMOL/L Potassium Level 3.8 3.6-5.0 MMOL/L Chloride Level 109 H 98-107 MMOL/L Carbon Dioxide Level 17 L 21-32 MMOL/L Anion Gap 16 H 5-14 MMOL/L Blood Urea Nitrogen 12 7-18 MG/DL Creatinine 0.72 0.60-1.30 MG/DL Estimat Glomerular Filtration Rate > 60 BUN/Creatinine Ratio 17 Glucose Level 92 70-105 MG/DL Calcium Level 9.5 8.5-10.1 MG/DL Corrected Calcium 9.4 8.5-10.1 MG/DL Total Bilirubin 0.3 0.1-1.0 MG/DL Aspartate Amino Transf (AST/SGOT) 20 5-34 U/L Alanine Aminotransferase (ALT/SGPT) 13 0-55 U/L Alkaline Phosphatase 113 40-136 U/L Total Creatine Kinase 109 29-168 U/L Troponin I < 0.028 <0.028 NG/ML Total Protein 8.3 H 6.4-8.2 GM/DL Albumin 4.1 3.2-4.5 GM/DL Serum Test, Qualitative NEGATIVE NEGATIVE Serum Alcohol 166 H <10 MG/DL (MIKE WILKERSON MD) Vital Signs/I&O 01/04/21 01/04/21 14:45 15:55 Temp 36.9 Pulse 110 114 Resp 26 18 B/P (MAP) 130/82 (98) 124/100 Pulse Ox 97 96 O2 Delivery Room Air Room Air (MIKE WILKERSON MD) Vital Signs/I&O Capillary Refill : (FRANK TOWNSEND APRN) Progress Note : Progress Note I was physically present in the emergency department as attending physician during the care of this patient, but I was not directly involved in this patient's care. (MIKE WILKERSON MD) Departure Communication (Admissions) 1540-feeling better much more calm. Will discharge to home. 1543-EKG shows sinus tachycardia normal intervals no ST segment changes no ectopy. (FRANK TOWNSEND APRN) Impression Primary Impression: Alcohol intoxication Additional Impression: Anxiety Disposition: 01 HOME, SELF-CARE Condition: Stable Departure-Patient Inst. Decision time for Depature: 15:33 (FRANK TOWNSEND APRN) Referrals: NO,LOCAL PHYSICIAN (PCP/Family) Primary Care Physician Patient Instructions: Anxiety, Adult ED, Alcohol Use - When Is Drinking a Problem? FRANK TOWNSEND APRN Jan 04, 2021 14:57 MIKE WILKERSON MD Jan 06, 2021 09:47
[2021-01-04] MEDS ORDERED: LORazepam INJ 2 MG/ML (ATIVAN) VIAL IVP ONE (15:00)
[2021-01-04 15:05] LABS: BASOPHILS # (AUTO) 0.1 10^3/uL (0.0-0.1); BASOPHILS % (AUTO) 1 % (0-10); EOSINOPHILS # (AUTO) 0.2 10^3/uL (0.0-0.3); EOSINOPHILS % (AUTO) 2 % (0-10); HEMATOCRIT 39 % (35-52); HEMOGLOBIN 13.4 g/dL (11.5-16.0); LYMPHOCYTES # (AUTO) 2.9 10^3/uL (1.0-4.0); LYMPHOCYTES % (AUTO) 28 % (12-44); MEAN CORPUSCULAR HEMOGLOBIN 29 pg (25-34); MEAN CORPUSCULAR HGB CONC 34 g/dL (32-36); MEAN CORPUSCULAR VOLUME 85 fL (80-99); MEAN PLATELET VOLUME 9.6 fL (9.0-12.2); MONOCYTES # (AUTO) 0.9 10^3/uL (0.0-1.0); MONOCYTES % (AUTO) 8 % (0-12); NEUTROPHILS # (AUTO) 6.3 10^3/uL (1.8-7.8); NEUTROPHILS % (AUTO) 61 % (42-75); PLATELET COUNT 424 10^3/uL (130-400); WHITE BLOOD COUNT 10.4 10^3/uL (4.3-11.0)
[2021-01-04 15:18] LABS: ALBUMIN 4.1 GM/DL (3.2-4.5); CHLORIDE 109 MMOL/L (98-107); POTASSIUM 3.8 MMOL/L (3.6-5.0); SODIUM 142 MMOL/L (135-145)
[2021-01-04 15:20] LABS: CALCIUM 9.5 MG/DL (8.5-10.1)
[2021-01-04 15:21] LABS: GLUCOSE 92 MG/DL (70-105); TOTAL PROTEIN 8.3 GM/DL (6.4-8.2)
[2021-01-04 15:22] LABS: CARBON DIOXIDE 17 MMOL/L (21-32)
[2021-01-04 15:23] LABS: BILIRUBIN,TOTAL 0.3 MG/DL (0.1-1.0)
[2021-01-04 15:24] LABS: ALKALINE PHOSPHATASE 113 U/L (40-136)
[2021-01-04 15:25] LABS: CREATININE SERUM 0.72 MG/DL (0.60-1.30); GFR ESTIMATED > 60
[2021-01-04 15:26] LABS: BUN/CREATININE RATIO 17
[2021-01-04 15:28] LABS: ALANINE AMINOTRANSFERASE 13 U/L (0-55); CREATINE KINASE 109 U/L (29-168)
[2021-01-04] MEDS ORDERED: LORazepam INJ 2 MG/ML (ATIVAN) VIAL IVP PRN (15:45)
[2021-01-04 15:55] VITALS: BP 124/100
== END 2021-01-04 16:14 | disposition home or self-care (01) ==
LOC: EDUNIT# 14:45 → ER 14:47
DX: F10.129 Alcohol abuse with intoxication, unspecified (principal); F41.9 Anxiety disorder, unspecified; Z77.22 Contact with and (suspected) exposure to environmental tobacco smoke (acute) (chronic); Z79.52 Long term (current) use of systemic steroids
CPT/HCPCS: 80053; 82550; 84484; 84703; 85025; 85379; 93005; 99284; G0480; 36415; 80320

== ENCOUNTER → 2021-02-04 | Outpatient (CLI) | payer MEDICAID | LOC: LABNPT 06:33 | PROVIDERS: ATTEND Orthopaedic Surgery Orthopaedic Trauma | DX: Z01.812 Encounter for preprocedural laboratory examination (principal); Z53.9 Procedure and treatment not carried out, unspecified reason ==

== ENCOUNTER 2021-02-15 18:15 | Emergency (ER) | payer MEDICAID ==
[~2021-02-15] VITALS: Ht 154.9 cm; Wt 79.0 kg
[2021-02-15] MEDS ORDERED: NS IV ONE (18:30)
--- NOTE | 2021-02-15 18:37 | ED Integumentary General ---
General Chief Complaint: Skin/Wound Problems Stated Complaint: INCISION INFECTED Source: patient Exam Limitations: no limitations History of Present Illness Date Seen by Provider: Feb 15, 2021 Time Seen by Provider: 18:33 Initial Comments Patient had hardware removed from left femur by Dr. Pimentel at [facility] on February 05. She has been doing well until the past few days when she has become convinced that there may be an infection. She has some drainage from the most superior incision. She has had chills but has not measured her fevers. She had a few alcoholic beverages this evening to help with pain control. HX tricuspid endocarditis April 2019. Timing/Duration: just prior to arrival Severity: moderate Location: extremities Associated Symptoms: denies symptoms Allergies and Home Medications Allergies Coded Allergies: No Known Drug Allergies (Unverified , 07/10/20) Home Medications Cyclobenzaprine HCl 10 Mg Tablet, 10 MG PO Q8H PRN for SPASMS Prescribed by: EMELY KABA on 12/02/20 0946 Methocarbamol 750 Mg Tablet, 750 MG PO Q4H PRN for PAIN-SEVERE (8-10) Prescribed by: ESA MANUEL on 07/10/20 032 Methocarbamol 750 Mg Tablet, 750 MG PO Q6H PRN for PAIN-MODERATE (5-7) Prescribed by: FRANK TOWNSEND on 07/12/201814 Prednisone 20 Mg Tab, 40 MG PO DAILY Prescribed by: ESA MANUEL on 07/10/20326 Prednisone 20 Mg Tab, 40 MG PO DAILY Prescribed by: FRANK TOWNSEND on 07/12/201814 Patient Home Medication List Home Medication List Reviewed: Yes Review of Systems Review of Systems Constitutional: see HPI, chills EENTM: see HPI Respiratory: no symptoms reported Cardiovascular: no symptoms reported Genitourinary: no symptoms reported Musculoskeletal: no symptoms reported Skin: no symptoms reported Psychiatric/Neurological: No Symptoms Reported Endocrine: No Symptoms Reported Hematologic/Lymphatic: No Symptoms Reported Past Tjybhqr-Kzjsow-Rowysr Hx Seasonal Allergies Seasonal Allergies: No Past Medical History Surgeries: Yes (LEFT FEMUR OMI/PINS AGE 16) Orthopedic Respiratory: No Cardiac: Yes (TRICUSPID ENDOCARDITIS 2018) Endocarditis, Valvular Heart Disease 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 Genitourinary: No Gastrointestinal: Yes (HEPATITIS C) Hepatitis Musculoskeletal: Yes (LEFT FEMUR OMI/SCREWS AGE 16; LUMBAR DISC DISEASE) Degenerate Disk Disease, Chronic Back Pain, Fractures Endocrine: No HEENT: No Cancer: No Psychosocial: No Integumentary: No Family Medical History No Pertinent Family Hx Physical Exam Vital Signs Vital Signs - First Documented 02/15/21 18:15 Temp 37.5 Pulse 113 Resp 18 B/P (MAP) 118/64 (82) Pulse Ox 96 O2 Delivery Room Air Capillary Refill : General Appearance: WD/WN, no apparent distress HEENT: PERRL/EOMI, normal ENT inspection Neck: non-tender, full range of motion Respiratory: no respiratory distress, no accessory muscle use Extremities: normal range of motion, non-tender Neurologic/Psychiatric: alert, normal mood/affect Skin: normal color, warm/dry Skin Problem Location: lower extremities Skin Problem Character: other (There are 3 incisions to the lateral aspect of the left thigh. The most distal 1 over the distal femur is clean dry and intact without surrounding erythema or ecchymosis or drainage. The middle 1 has quite a bit of surrounding swelling and ecchymosis but no erythema no drainage. The most superior wound over the lateral aspect of the iliac crest region has some serosanguineous slightly purulent drainage with surrounding erythema.) Procedures/Interventions IV : Location: Right Site: Antecubital IV Catheter Type: Peripheral IV IV Catheter Gauge: 20 Progress 20-gauge 3 inch IV started right antecubital fossa under ultrasound guidance sterile technique Progress/Results/Core Measures Results/Orders Lab Results Laboratory Tests Test 02/15/21 18:40 02/15/21 19:03 02/15/21 19:22 02/15/21 19:30 Range/Units White Blood Count 23.9 H 4.3-11.0 10^3/uL Red Blood Count 3.09 L 3.80-5.11 10^6/uL Hemoglobin 8.7 L 11.5-16.0 g/dL Hematocrit 26 L 35-52 % Mean Corpuscular Volume 85 80-99 fL Mean Corpuscular Hemoglobin 28 25-34 pg Mean Corpuscular Hemoglobin Concent 33 32-36 g/dL Red Cell Distribution Width 18.0 H 10.0-14.5 % Platelet Count 616 H 130-400 10^3/uL Mean Platelet Volume 8.9 L 9.0-12.2 fL Immature Granulocyte % (Auto) 1 % Neutrophils (%) (Auto) 78 H 42-75 % Lymphocytes (%) (Auto) 13 12-44 % Monocytes (%) (Auto) 7 0-12 % Eosinophils (%) (Auto) 1 0-10 % Basophils (%) (Auto) 0 0-10 % Neutrophils # (Auto) 18.7 H 1.8-7.8 10^3/uL Lymphocytes # (Auto) 3.1 1.0-4.0 10^3/uL Monocytes # (Auto) 1.7 H 0.0-1.0 10^3/uL Eosinophils # (Auto) 0.2 0.0-0.3 10^3/uL Basophils # (Auto) 0.1 0.0-0.1 10^3/uL Immature Granulocyte # (Auto) 0.2 H 0.0-0.1 10^3/uL Neutrophils % (Manual) 81 % Lymphocytes % (Manual) 9 % Monocytes % (Manual) 8 % Eosinophils % (Manual) 2 % Blood Morphology Comment NORMAL Prothrombin Time 15.2 H 12.2-14.7 SEC INR Comment 1.2 0.8-1.4 Activated Partial Thromboplast Time 38 H 24-35 SEC Sodium Level 140 135-145 MMOL/L Potassium Level 3.4 L 3.6-5.0 MMOL/L Chloride Level 112 H 98-107 MMOL/L Carbon Dioxide Level 15 L 21-32 MMOL/L Anion Gap 13 5-14 MMOL/L Blood Urea Nitrogen 8 7-18 MG/DL Creatinine 0.68 0.60-1.30 MG/DL Estimat Glomerular Filtration Rate > 60 BUN/Creatinine Ratio 12 Glucose Level 105 70-105 MG/DL Lactic Acid Level 1.73 0.50-2.00 MMOL/L Calcium Level 8.4 L 8.5-10.1 MG/DL Corrected Calcium 9.0 8.5-10.1 MG/DL Total Bilirubin 0.2 0.1-1.0 MG/DL Aspartate Amino Transf (AST/SGOT) 20 5-34 U/L Alanine Aminotransferase (ALT/SGPT) 13 0-55 U/L Alkaline Phosphatase 93 40-136 U/L Total Protein 7.7 6.4-8.2 GM/DL Albumin 3.2 3.2-4.5 GM/DL Procalcitonin 0.08 <0.10 NG/ML Serum Test, Qualitative NEGATIVE NEGATIVE Serum Alcohol 67 H <10 MG/DL B-Type Natriuretic Peptide < 10.0 <100.0 PG/ML Urine Color YELLOW Urine Clarity SL CLOUDY Urine pH 6.0 5-9 Urine Specific [place] 1.025 H 1.016-1.022 Urine Protein TRACE H NEGATIVE Urine Glucose (UA) NEGATIVE NEGATIVE Urine Ketones NEGATIVE NEGATIVE Urine Nitrite NEGATIVE NEGATIVE Urine Bilirubin NEGATIVE NEGATIVE Urine Urobilinogen 0.2 < = 1.0 MG/DL Urine Leukocyte Esterase 1+ H NEGATIVE Urine RBC (Auto) NEGATIVE NEGATIVE Urine RBC 0-2 /HPF Urine WBC 2-5 /HPF Urine Squamous Epithelial Cells 5-10 /HPF Urine Renal Epithelial Cells NONE /HPF Urine Crystals NONE /LPF Urine Bacteria FEW H /HPF Urine Casts NONE /LPF Urine Mucus NEGATIVE /LPF Urine Culture Indicated CULTURE PENDING Urine Opiates Screen NEGATIVE NEGATIVE Urine Oxycodone Screen NEGATIVE NEGATIVE Urine Methadone Screen NEGATIVE NEGATIVE Urine Propoxyphene Screen NEGATIVE NEGATIVE Urine Barbiturates Screen NEGATIVE NEGATIVE Ur Tricyclic Antidepressants Screen NEGATIVE NEGATIVE Urine Phencyclidine Screen NEGATIVE NEGATIVE Urine Amphetamines Screen NEGATIVE NEGATIVE Urine Methamphetamines Screen NEGATIVE NEGATIVE Urine Benzodiazepines Screen POSITIVE H NEGATIVE Urine Cocaine Screen NEGATIVE NEGATIVE Urine Cannabinoids Screen POSITIVE H NEGATIVE Test 02/15/21 19:47 Range/Units SARS-CoV-2 RNA (RT-PCR) Not Detected Not Detecte My Orders Orders - FRANK TOWNSEND APRN Ct Extremity Lower Left W (02/15/21 18:28) Cbc With Automated Diff (02/15/21 18:28) Comprehensive Metabolic Panel (02/15/21 18:28) Blood Culture (02/15/21 18:28) Sputum Culture (02/15/21 18:28) Urinalysis (02/15/21 18:28) Urine Culture (02/15/21 18:28) Protime With Inr (02/15/21 18:28) Partial Thromboplastin Time (02/15/21 18:28) Chest 1 View, Ap/Pa Only (02/15/21 18:28) Ed Iv/Invasive Line Start (02/15/21 18:28) Vital Signs Adult Sepsis Patie Q15M (02/15/21 18:28) O2 (02/15/21 18:28) Remove Rings In Anticipation O (02/15/21 18:28) Lactic Acid Analyzer (02/15/21 18:28) Ns Iv 1000 Ml (Sodium Chloride 0.9%) (02/15/21 18:30) Alcohol (02/15/21 18:28) Procalcitonin (Pct) (02/15/21 18:28) Hcg,Qualitative Serum (02/15/21 18:28) Iohexol Injection (Omnipaque 350 Mg/Ml 1 (02/15/21 18:45) Received Contrast (Hold Metformin- Contr (02/15/21 18:45) Sodium Chloride Flush (Catheter Flush Sy (02/15/21 18:45) Ns (Ivpb) (Sodium Chloride 0.9% Ivpb Bag (02/15/21 18:45) Manual Differential (02/15/21 18:40) Ct Angio Chest W (02/15/21 19:21) Piperacillin Sodium/Tazobactam (Zosyn Vi (02/15/21 19:45) Vancomycin Injection (Vancomycin Injecti (02/15/21 19:45) Covid 19 Inhouse Test (02/15/21 19:43) Drug Screen Stat (Urine) (02/15/21 19:47) Diphenhydramine Injection (Benadryl Inje (02/15/21 20:15) Ns Iv 1000 Ml (Sodium Chloride 0.9%) (02/15/21 20:14) BNP (02/15/21 20:25) Vancomycin Injection (Vancomycin Injecti (02/15/21 20:59) Ns (Ivpb) (Sodium Chloride 0.9%) (02/15/21 21:00) Wound Culture (02/15/21 21:05) Fentanyl Inj (Sublimaze Injection) (02/15/21 21:15) Medications Given in ED Current Medications Medications Dose Ordered Sig/[place] Route Start Time Stop Time Status Last Admin Dose Admin Diphenhydramine HCl 25 mg ONCE ONCE IVP 02/15/21 20:15 02/15/21 20:16 DC 02/15/21 20:07 25 MG Fentanyl Citrate 50 mcg ONCE ONCE IVP 02/15/21 21:15 02/15/21 21:16 DC 02/15/21 21:20 50 MCG Iohexol 100 ml ONCE ONCE IV 02/15/21 18:45 02/15/21 18:46 DC 02/15/21 20:44 100 ML Piperacillin Sod/ Tazobactam Sod 4.5 gm/Sodium Chloride 100 ml @ 200 mls/hr ONCE ONCE IV 02/15/21 19:45 02/15/21 20:14 DC 02/15/21 20:07 200 MLS/HR Sodium Chloride 100 ml ONCE ONCE IV 02/15/21 18:45 02/15/21 18:46 DC 02/15/21 20:07 100 ML Sodium Chloride 250 ml @ ud STK-MED ONCE .ROUTE 02/15/21 21:00 02/15/21 21:02 DC 02/15/21 21:05 250 MLS/HR Sodium Chloride 2,316 ml @ 2,316 mls/hr ONCE ONCE IV 02/15/21 18:30 02/15/21 19:29 DC 02/15/21 19:22 2,316 MLS/HR Vancomycin HCl 1,000 mg STK-MED ONCE .ROUTE 02/15/21 20:59 02/15/21 21:02 DC 02/15/21 21:05 1,000 MG Vital Signs/I&O 02/15/21 18:15 Temp 37.5 Pulse 113 Resp 18 B/P (MAP) 118/64 (82) Pulse Ox 96 O2 Delivery Room Air Progress Progress Note : Progress Note NAME: BRINDA THOMPSON MED REC#: [id number] PT STATUS: REG ER : 1985 PHYSICIAN: FRANK TOWNSEND APRN ADMIT DATE: 02/15/21/ER Draft Date of Exam:02/15/21 CHEST 1 VIEW, AP/PA ONLY INDICATION: Sepsis. COMPARISON: 04/04/2019. EXAMINATION: Single view of the chest was obtained. FINDINGS: New infiltrate in the right upper lobe and left hilum. The heart is normal. There is no pneumothorax or effusion. Osseous structures are normal. IMPRESSION: Right upper lobe and left hilar infiltrates. Dictated on workstation # [id number] Dict: 02/15/212015 Trans: 02/15/21 2018 PJE [id number] Interpreted by: CASSIDY LEE Electronically signed by: NAME: BRINDA THOMPSON MED REC#: [id number] PT STATUS: REG ER : 1985 PHYSICIAN: FRANK TOWNSEND APRN ADMIT DATE: 02/15/21/ER Draft Date of Exam:02/15/21 CT ANGIO CHEST W PROCEDURE: CT angiography of the chest with contrast. TECHNIQUE: Multiple contiguous axial images were obtained through the chest after uneventful bolus administration of intravenous contrast. 3D reconstructed CTA MIP acquisitions were also performed. Auto Exposure Controls were utilized during the CT exam to meet ALARA standards for radiation dose reduction. INDICATION: Shortness of breath. COMPARISON: 04/04/2019. FINDINGS: The heart size is normal. There is no pulmonary embolism or acute aortic pathology. There is no pericardial effusion. No lymphadenopathy is seen. There are bilateral pulmonary infiltrates compatible with pneumonia. There is no pneumothorax or effusion. Osseous structures and visualized upper abdominal solid organs are unremarkable. IMPRESSION: 1. Pulmonary infiltrates compatible with pneumonia. 2. No pulmonary embolism identified. Dictated on workstation # [id number] Dict: 02/15/212043 Trans: 02/15/212047 [facility] [id number] Interpreted by: CASSIDY LEE Electronically signed by: Diagnostic Imaging Diagonstic Imaging: CT Comments NAME: BRINDA THOMPSON [facility] REC#: [id number] PT STATUS: REG ER : 1985 PHYSICIAN: FRANK TOWNSEND APRN ADMIT DATE: 02/15/21/ER Draft Date of Exam:02/15/21 CT EXTREMITY LOWER LEFT W PROCEDURE: CT left lower extremity with contrast. TECHNIQUE: Multiple axial images of the left lower extremity were obtained after intravenous administration of iodinated contrast. Auto Exposure Controls were utilized during the CT exam to meet ALARA standards for radiation dose reduction. INDICATION: Left leg pain hardware removal. COMPARISON: None. FINDINGS: Orthopedic hardware has been extricated from the left femur. There is no fracture or CT evidence of osteomyelitis. There is enhancing fluid collection that tracks along the vastus lateralis fascia measuring approximately 3 cm. Additionally, there is some hematoma in the subcutaneous tissues are actually there is additional fluid collection without enhancement in the subcutaneous fat which abuts the gluteus fascia measuring approximately 3.5 cm. This appears to be a hematoma. IMPRESSION: 1. Two separate fluid collections; one measures smaller and inferior to the hip joint along the vastus lateralis fascia may be an abscess. This is at the level of the more inferior skin brad. There is no gas. 2. Second larger more superior fluid collection appears just superior to the first and adjacent to the gluteus muscles appears to be hematoma. This is at the level of the more superior skin brad Follow-up is recommended. 3. No underlying fracture or osteomyelitis. 4. Not mentioned above, there is a 3rd fluid collection medial to the lesser trochanter measuring approximately 3 cm. This could represent hematoma as well, given its appearance. Dictated on workstation # [id number] Dict: 02/15/212044 Trans: 02/15/212054 PJE [id number] Interpreted by: CASSIDY LEE Electronically signed by: NAME: BRINDA THOMPSON [facility] REC#: [id number] PT STATUS: REG ER : 1985 PHYSICIAN: FRANK TOWNSEND [employer]ION[employer] LOSS PREVENTION MANAGER ADMIT DATE: 02/15/21/ER Signed Date of Exam:02/15/21 CT ANGIO CHEST W PROCEDURE: CT angiography of the chest with contrast. TECHNIQUE: Multiple contiguous axial images were obtained through the chest after uneventful bolus administration of intravenous contrast. 3D reconstructed CTA MIP acquisitions were also performed. Auto Exposure Controls were utilized during the CT exam to meet ALARA standards for radiation dose reduction. INDICATION: Shortness of breath. COMPARISON: 04/04/2019. FINDINGS: The heart size is normal. There is no pulmonary embolism or acute aortic pathology. There is no pericardial effusion. No lymphadenopathy is seen. There are bilateral pulmonary infiltrates compatible with pneumonia. There is no pneumothorax or effusion. Osseous structures and visualized upper abdominal solid organs are unremarkable. IMPRESSION: 1. Pulmonary infiltrates compatible with pneumonia. 2. No pulmonary embolism identified. Dictated by: Dictated on workstation # [id number] Dict: 02/15/212043 Trans: 02/15/212057 PJE [id number] Interpreted by: CASSIDY LEE Electronically signed by: CASSIDY LEE 02/15/212057 Departure Communication (Admissions) 2[facility] are at [facility]. Spoke with Dr. Castelan here from orthopedics, recommends transfer to higher level of care. I will continue to call around and see if someone is able accept the patient and get an orthopedics consult in case this represents abscess. However, it is entirely possible this is just a hematoma/seroma with her sepsis coming from the pneumonia. Additionally, with her history of tricuspid endocarditis this is within the differential as well. However, I cannot make that diagnosis from an ER workup. Impression Primary Impression: Postoperative abscess Additional Impressions: Pneumonia Sepsis Disposition: XFER SHT-TRM HOSP Condition: Stable Transfer Transfer Reason: Exceeds level of care Departure-Patient Inst. Referrals: NO,LOCAL PHYSICIAN (PCP/Family) Primary Care Physician FRANK TOWNSEND APRN Feb 15, 2021 18:37
[2021-02-15] MEDS ORDERED: IOHEXOL 350 MG/ML 100 ML (OMNIPAQUE 350) VIAL IV ONE (18:45)
[2021-02-15] MEDS ORDERED: NS 100 ML (IVPB) BAG IV ONE (18:45)
[2021-02-15] MEDS ORDERED: HOLD METFORMIN - RECEIVED CONTRAST 20 ML VIAL IV SCH (18:45)
[2021-02-15] MEDS ORDERED: CATHETER FLUSH 10 ML SYR IV PRN (18:45)
[2021-02-15 19:07] LABS: BASOPHILS # (AUTO) 0.1 10^3/uL (0.0-0.1); BASOPHILS % (AUTO) 0 % (0-10); EOSINOPHILS # (AUTO) 0.2 10^3/uL (0.0-0.3); EOSINOPHILS % (AUTO) 1 % (0-10); HEMATOCRIT 26 % (35-52); HEMOGLOBIN 8.7 g/dL (11.5-16.0); LYMPHOCYTES # (AUTO) 3.1 10^3/uL (1.0-4.0); LYMPHOCYTES % (AUTO) 13 % (12-44); MEAN CORPUSCULAR HEMOGLOBIN 28 pg (25-34); MEAN CORPUSCULAR HGB CONC 33 g/dL (32-36); MEAN CORPUSCULAR VOLUME 85 fL (80-99); MEAN PLATELET VOLUME 8.9 fL (9.0-12.2); MONOCYTES # (AUTO) 1.7 10^3/uL (0.0-1.0); MONOCYTES % (AUTO) 7 % (0-12); NEUTROPHILS # (AUTO) 18.7 10^3/uL (1.8-7.8); NEUTROPHILS % (AUTO) 78 % (42-75); PLATELET COUNT 616 10^3/uL (130-400); WHITE BLOOD COUNT 23.9 10^3/uL (4.3-11.0)
[2021-02-15 19:26] LABS: INR 1.2 (0.8-1.4); PROTHROMBIN TIME PATIENT 15.2 SEC (12.2-14.7)
[2021-02-15 19:35] LABS: BILIRUBIN,URINE NEGATIVE (NEGATIVE); CLARITY,URINE SL CLOUDY; COLOR,URINE YELLOW; GLUCOSE, URINE (UA) NEGATIVE (NEGATIVE); KETONES,URINE NEGATIVE (NEGATIVE); LEUKOCYTE ESTERASE ,URINE 1+ (NEGATIVE); NITRITE,URINE NEGATIVE (NEGATIVE); PROTEIN,URINE TRACE (NEGATIVE)
[2021-02-15 19:39] LABS: EOSINOPHILS % (MANUAL) 2 %; LYMPHOCYTES % (MANUAL) 9 %; MONOCYTES % (MANUAL) 8 %; NEUTROPHILS % (MANUAL) 81 %; RBC MORPH NORMAL
[2021-02-15 19:45] LABS: RBC,URINE 0-2 /HPF
[2021-02-15] MEDS ORDERED: PIPERACILLIN SODIUM/TAZOBACTAM 4.5 GM in NS (IVPB) 100 ML IV ONE (19:45)
[2021-02-15] MEDS ORDERED: VANCOMYCIN INJECTION 1,000 MG in NS (IVPB) 250 ML IV SCH (19:45)
[2021-02-15 19:46] LABS: BACTERIA,URINE FEW /HPF
[2021-02-15 19:51] LABS: ALANINE AMINOTRANSFERASE 13 U/L (0-55); ALBUMIN 3.2 GM/DL (3.2-4.5); ALKALINE PHOSPHATASE 93 U/L (40-136); BILIRUBIN,TOTAL 0.2 MG/DL (0.1-1.0); BUN/CREATININE RATIO 12; CALCIUM 8.4 MG/DL (8.5-10.1); CARBON DIOXIDE 15 MMOL/L (21-32); CHLORIDE 112 MMOL/L (98-107); CREATININE SERUM 0.68 MG/DL (0.60-1.30); GFR ESTIMATED > 60; GLUCOSE 105 MG/DL (70-105); POTASSIUM 3.4 MMOL/L (3.6-5.0); SODIUM 140 MMOL/L (135-145); TOTAL PROTEIN 7.7 GM/DL (6.4-8.2)
[2021-02-15 20:12] LABS: AMPHETAMINE SCREEN, URINE NEGATIVE (NEGATIVE); BARBITURATE SCREEN URINE NEGATIVE (NEGATIVE); BENZODIAZEPINES SCREEN URINE POSITIVE (NEGATIVE); CANNABINOID SCREEN, URINE POSITIVE (NEGATIVE); COCAINE SCREEN URINE NEGATIVE (NEGATIVE); METHADONE STAT NEGATIVE (NEGATIVE); METHAMPHETAMINE SCREEN URINE S NEGATIVE (NEGATIVE); OPIATE SCREEN URINE NEGATIVE (NEGATIVE); OXYCODONE STAT NEGATIVE (NEGATIVE); PROPOXYPHENE STAT NEGATIVE (NEGATIVE); TRICYCLIC ANTIDEPRESSANTS SCRE NEGATIVE (NEGATIVE)
[2021-02-15] MEDS ORDERED: NS IV 1000 ML 1,000 ML ONE (20:14)
[2021-02-15] MEDS ORDERED: diphenhydrAMINE 50 MG/ML INJ (BENADRYL) IVP ONE (20:15)
--- NOTE | 2021-02-15 20:18 | Diagnostic Imaging Report ---
INDICATION: Sepsis. COMPARISON: 04/04/2019. EXAMINATION: Single view of the chest was obtained. FINDINGS: New infiltrate in the right upper lobe and left hilum. The heart is normal. There is no pneumothorax or effusion. Osseous structures are normal. IMPRESSION: Right upper lobe and left hilar infiltrates. Dictated by: Dictated on workstation # [id number]
--- NOTE | 2021-02-15 20:49 | Diagnostic Imaging Report ---
PROCEDURE: CT angiography of the chest with contrast. TECHNIQUE: Multiple contiguous axial images were obtained through the chest after uneventful bolus administration of intravenous contrast. 3D reconstructed CTA MIP acquisitions were also performed. Auto Exposure Controls were utilized during the CT exam to meet ALARA standards for radiation dose reduction. INDICATION: Shortness of breath. COMPARISON: 04/04/2019. FINDINGS: The heart size is normal. There is no pulmonary embolism or acute aortic pathology. There is no pericardial effusion. No lymphadenopathy is seen. There are bilateral pulmonary infiltrates compatible with pneumonia. There is no pneumothorax or effusion. Osseous structures and visualized upper abdominal solid organs are unremarkable. IMPRESSION: 1. Pulmonary infiltrates compatible with pneumonia. 2. No pulmonary embolism identified. Dictated by: Dictated on workstation # [id number]
--- NOTE | 2021-02-15 20:56 | Diagnostic Imaging Report ---
PROCEDURE: CT left lower extremity with contrast. TECHNIQUE: Multiple axial images of the left lower extremity were obtained after intravenous administration of iodinated contrast. Auto Exposure Controls were utilized during the CT exam to meet ALARA standards for radiation dose reduction. INDICATION: Left leg pain hardware removal. COMPARISON: None. FINDINGS: Orthopedic hardware has been extricated from the left femur. There is no fracture or CT evidence of osteomyelitis. There is enhancing fluid collection that tracks along the vastus lateralis fascia measuring approximately 3 cm. Additionally, there is some hematoma in the subcutaneous tissues are actually there is additional fluid collection without enhancement in the subcutaneous fat which abuts the gluteus fascia measuring approximately 3.5 cm. This appears to be a hematoma. IMPRESSION: 1. Two separate fluid collections; one measures smaller and inferior to the hip joint along the vastus lateralis fascia may be an abscess. This is at the level of the more inferior skin brad. There is no gas. 2. Second larger more superior fluid collection appears just superior to the first and adjacent to the gluteus muscles appears to be hematoma. This is at the level of the more superior skin brad Follow-up is recommended. 3. No underlying fracture or osteomyelitis. 4. Not mentioned above, there is a 3rd fluid collection medial to the lesser trochanter measuring approximately 3 cm. This could represent hematoma as well, given its appearance. Dictated by: Dictated on workstation # [id number]
[2021-02-15] MEDS ORDERED: VANCOMYCIN 1000 MG/VIAL ONE (20:59)
[2021-02-15] MEDS ORDERED: NS (IVPB) 250 ML ONE (21:00)
[2021-02-15] MEDS ORDERED: fentaNYL INJ 100 MCG/2 ML AMP IVP ONE ×2 (21:15→22:15)
[2021-02-15] MEDS ORDERED: LORazepam INJ 2 MG/ML (ATIVAN) VIAL IVP PRN (22:15)
[2021-02-15 23:10] VITALS: BP 130/82
== END 2021-02-15 22:54 | disposition short-term general hospital (02) ==
LOC: EDUNIT# 18:15 → ER 18:16
DX: T81.49XA Infection following a procedure, other surgical site, initial encounter (principal); J18.9 Pneumonia, unspecified organism; A41.9 Sepsis, unspecified organism; Z20.822 Contact with and (suspected) exposure to COVID-19; Z79.52 Long term (current) use of systemic steroids
CPT/HCPCS: 71045; 71275; 73701; 80053; 80306; 81000; 83605; 83880; 84145; 84703 ×2; 85007; 85027; 85610; 85730; 87040; 87070; 87077; 87088; 87205; 87636; 99285; G0480; 36415; 80320; 87186

== ENCOUNTER → 2021-03-28 | Outpatient (CLI) | payer MEDICAID | LOC: CARD 09:00 | PROVIDERS: ATTEND Internal Medicine Cardiovascular Disease | DX: I07.1 Rheumatic tricuspid insufficiency (principal); I51.7 Cardiomegaly | CPT/HCPCS: 93306 ==

== ENCOUNTER → 2021-12-10 | Outpatient (CLI) | payer MEDICAID ==
[~2021-12-10] MED LIST changes: +CYCL10TA25 PO; -CYCL10TA9 PO
--- NOTE | 2021-12-10 12:15 | Diagnostic Imaging Report ---
Indication: Abnormal electrocardiogram COMPARISON: 02/15/2021 TECHNIQUE: 2 radiographs of the chest dated 12/10/2021 FINDINGS: The cardiac silhouette is within normal limits in size. No significant pulmonary vascular congestion. The lungs are clear of focal pulmonary opacity with interval clearance of previously noted pulmonary infiltrate. No pleural effusion. No pneumothorax. No acute osseous abnormality. IMPRESSION: No acute cardiopulmonary abnormality with interval clearance of previously noted pulmonary infiltrates. Dictated by: Dictated on workstation # [id number]
== END ==
LOC: CARD 08:36
PROVIDERS: ATTEND Internal Medicine Cardiovascular Disease
DX: R94.31 Abnormal electrocardiogram [ECG] [EKG] (principal)
CPT/HCPCS: 71046; 93306

== ENCOUNTER → 2021-12-18 | Outpatient (CLI) | payer MEDICAID ==
[~2021-12-18] MED LIST changes: +REGADENOSON 0.4 MG/5 ML SYR (LEXISCAN) IV ONE
[2021-12-18] MEDS: CATHETER FLUSH 10 ML SYR IVP PRN ×2 (08:19→09:54)
[2021-12-18 09:32] VITALS: BP 123/86
--- NOTE | 2021-12-18 14:43 | NUCLEAR STRESS TEST ---
REGADENOSON NUCLEAR STRESS Date of procedure: 12/18/2021. Primary care provider: No local physician Admitting physician: Cortez Roe Jr., MD. INDICATION: Abnormal electrocardiogram. BASELINE ELECTROCARDIOGRAM: Sinus rhythm with marked sinus arrhythmia and poor R wave progression. STRESS TEST PROCEDURE: This was initially intended to be a treadmill nuclear stress test but the patient could not attain her target heart rate and this was then changed over to a pharmacologic stress test. The patient was administered 0.4 mg of intravenous Regadenoson. The resting heart rate was 60 bpm and the peak heart rate was 118 bpm. The resting blood pressure was 153/89 mmHg and the minimum blood pressure was 129/80 mmHg. This represents a normal heart rate and a normal blood pressure response to Regadenoson. The test was stopped due to the protocol. There was no chest discomfort during the test. There were no arrhythmias during the test. There were no significant stress induced electro cardiogram changes. NUCLEAR PROCEDURE: The patient was administered 11 mCi of intravenous technetium 99m Tetrofosmin at rest for the rest images. The patient was subsequently administered 31.4 mCi of intravenous technetium 99m Tetrofosmin at peak stress for the stress images. Following an appropriate wait after each injection, imaging was obtained. The images were subsequently processed and reformatted in the usual views. Gated imaging was obtained. The image quality was adequate with a mild degree of gastrointestinal attenuation artifact. CT attenuation correction was used as a adjunct to standard imaging. Both the corrected and uncorrected images were reviewed for interpretation. NUCLEAR RESULTS: There was normal myocardial perfusion in all segments without evidence of infarction or ischemia. There was normal left ventricular chamber size with an end-diastolic volume of 36 mL and an end-systolic volume of 10 mL. There was no evidence of transient ischemic dilatation. The TID ratio was 0.93. There was normal wall motion in all segments with a calculated ejection fraction of 71%. IMPRESSION: 1. Normal heart rate and blood pressure response to regadenoson. 2. There was no chest discomfort, arrhythmias, or electrocardiogram changes during the test. 3. There was normal myocardial perfusion in all segments without evidence of infarction or ischemia. 4. There was normal wall motion in all segments with a calculated ejection fraction of 71%. Certain portions of this document may have been dictated utilizing voice recognition technology. Inherent to this technology, typographical and grammatical errors may exist. As much as I am diligent to identify and correct these mistakes, some errors may remain in the document. CORTEZ ROE JR, MD December 18, 2021 14:43
== END ==
LOC: CARD 08:30
PROVIDERS: ATTEND Internal Medicine Cardiovascular Disease
DX: R94.31 Abnormal electrocardiogram [ECG] [EKG] (principal)
CPT/HCPCS: 78452; 93017; A9502

== ENCOUNTER 2022-01-31 12:16 | Emergency (ER) | payer MEDICAID ==
[~2022-01-31] VITALS: Ht 154.9 cm; Wt 85.7 kg
[~2022-01-31 12:16] MED LIST changes: -REGADENOSON 0.4 MG/5 ML SYR (LEXISCAN) IV ONE
[2022-01-31] MEDS ORDERED: methylPREDNISolone 125 MG (Solu-MEDROL) VIAL IM ONE (12:45)
--- NOTE | 2022-01-31 12:50 | ED Cough/URI ---
General Chief Complaint: COVID19 Suspect/Confirmed Stated Complaint: SOB,CONGESTION,MACKEY,BODY ACHES Source: patient Exam Limitations: no limitations History of Present Illness Date Seen by Provider: Jan 31, 2022 Time Seen by Provider: 12:48 Initial Comments Patient is a 36-year-old female who presents the ED with flulike symptoms. Symptoms started 2 days ago. She reports a wet cough with congestion wheezing headache body aches fatigue. Patient with a history of COPD, bipolar. She states she been using a albuterol inhaler at home for the wheezing without much improvement. She is concerned for pneumonia which states feels very similar. She had a negative COVID influenza test performed at the clinic today. She reports some chest tightness this morning. History of endocarditis. She denies on any current antibiotics. She reports subjective fever without vomiting, diarrhea, abdominal pain, lower extremity swelling or redness, unilateral muscle weakness or sensory changes, neck pain Allergies and Home Medications Allergies Coded Allergies: No Known Drug Allergies (Unverified , 01/31/22) Patient Home Medication List Home Medication List Reviewed: Yes Azithromycin (Azithromycin) 250 Mg Tablet, 250 MG PO UD Prescribed by: ADELE HENRY on 01/31/22 1354 Cyclobenzaprine HCl (Cyclobenzaprine HCl) 10 Mg Tablet, 10 MG PO Q8H PRN for SPASMS Prescribed by: EMELY KABA on 12/02/20 0946 Methocarbamol (Robaxin-750) 750 Mg Tablet, 750 MG PO Q4H PRN for PAIN-SEVERE (8- 10) Prescribed by: ESA MANUEL on 07/10/20326 Methocarbamol (Robaxin-750) 750 Mg Tablet, 750 MG PO Q6H PRN for PAIN-MODERATE (5-7) Prescribed by: FRANK TOWNSEND on 07/12/201814 Prednisone (Prednisone) 20 Mg Tab, 40 MG PO DAILY Prescribed by: ESA MANUEL on 07/10/20326 Prednisone (Prednisone) 20 Mg Tab, 40 MG PO DAILY Prescribed by: FRANK TOWNSEND on 07/12/201814 Prednisone (Prednisone) 50 Mg Tab, 50 MG PO DAILY Prescribed by: ADELE HENRY on 01/31/22 1354 Review of Systems Review of Systems Constitutional: chills; No diaphoresis; malaise, weakness EENTM: No ear pain, No blurred vision, No double vision Respiratory: cough, short of breath, wheezing Cardiovascular: No chest pain, No edema Gastrointestinal: No abdominal pain, No nausea, No vomiting Genitourinary: No decreased output Musculoskeletal: No back pain, No joint pain Skin: No change in color, No change in hair/nails All Other Systems Reviewed Negative Unless Noted: Yes Past Mnnoope-Ceidtq-Lcirro Hx Seasonal Allergies Seasonal Allergies: No Past Medical History Surgery/Hospitalization HX: FEBRUARY 05 HAD OMI REMOVED. 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 oz. 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 as tested, no motor/sensory deficits, alert, normal mood/affect, oriented x 3 Skin: normal color, warm/dry Progress/Results/Core Measures Suspected Sepsis SIRS Temperature: Pulse: Respiratory Rate: Laboratory Tests 01/31/22 13:20: White Blood Count 11.3H Blood Pressure / Mean: Laboratory Tests 01/31/22 13:20: Creatinine 0.76, Platelet Count 328, Total Bilirubin 0.3 Results/Orders Lab Results Laboratory Tests Test 01/31/22 13:20 Range/Units White Blood Count 11.3 H 4.3-11.0 10^3/uL Red Blood Count 4.55 3.80-5.11 10^6/uL Hemoglobin 12.9 11.5-16.0 g/dL Hematocrit 38 35-52 % Mean Corpuscular Volume 83 80-99 fL Mean Corpuscular Hemoglobin 28 25-34 pg Mean Corpuscular Hemoglobin Concent 34 32-36 g/dL Red Cell Distribution Width 17.4 H 10.0-14.5 % Platelet Count 328 130-400 10^3/uL Mean Platelet Volume 9.6 9.0-12.2 fL Immature Granulocyte % (Auto) 0 % Neutrophils (%) (Auto) 72 42-75 % Lymphocytes (%) (Auto) 17 12-44 % Monocytes (%) (Auto) 9 0-12 % Eosinophils (%) (Auto) 1 0-10 % Basophils (%) (Auto) 1 0-10 % Neutrophils # (Auto) 8.1 H 1.8-7.8 10^3/uL Lymphocytes # (Auto) 2.0 1.0-4.0 10^3/uL Monocytes # (Auto) 1.0 0.0-1.0 10^3/uL Eosinophils # (Auto) 0.1 0.0-0.3 10^3/uL Basophils # (Auto) 0.1 0.0-0.1 10^3/uL Immature Granulocyte # (Auto) 0.0 0.0-0.1 10^3/uL Sodium Level 140 135-145 MMOL/L Potassium Level 3.7 3.6-5.0 MMOL/L Chloride Level 107 98-107 MMOL/L Carbon Dioxide Level 18 L 21-32 MMOL/L Anion Gap 15 H 5-14 MMOL/L Blood Urea Nitrogen 9 7-18 MG/DL Creatinine 0.76 0.60-1.30 MG/DL Estimat Glomerular Filtration Rate 104 BUN/Creatinine Ratio 12 Glucose Level 85 70-105 MG/DL Calcium Level 9.1 8.5-10.1 MG/DL Corrected Calcium 8.9 8.5-10.1 MG/DL Total Bilirubin 0.3 0.1-1.0 MG/DL Aspartate Amino Transf (AST/SGOT) 22 5-34 U/L Alanine Aminotransferase (ALT/SGPT) 17 0-55 U/L Alkaline Phosphatase 97 40-136 U/L Troponin I < 0.028 <0.028 NG/ML Total Protein 7.9 6.4-8.2 GM/DL Albumin 4.2 3.2-4.5 GM/DL My Orders Orders - LUCAS SOUZA Cbc With Automated Diff (01/31/22 12:45) Comprehensive Metabolic Panel (01/31/22 12:45) Ekg Tracing (01/31/22 12:45) Troponin I [place] (01/31/22 12:45) Chest 1 View, Ap/Pa Only (01/31/22 12:45) Methylprednisolone Sod Succ (Solu-Medrol (01/31/22 12:45) Albuterol/Ipra Inhalation Soln (Duoneb I (01/31/22 13:00) Svn Small Volume Nebulizer (01/31/22 12:52) Medications Given in ED Current Medications Medications Dose Ordered Sig/[place] Route Start Time Stop Time Status Last Admin Dose Admin Albuterol/ Ipratropium 3 ml ONCE ONCE INH 01/31/22 13:00 01/31/22 13:01 DC 01/31/22 13:08 3 ML Methylprednisolone Sodium Succinate 125 mg ONCE ONCE IM 01/31/22 12:45 01/31/22 12:48 DC 01/31/22 13:33 125 MG Vital Signs/I&O 01/31/22 01/31/22 01/31/22 12:38 12:38 13:08 Temp 37.1 Pulse 103 Resp 18 B/P (MAP) 136/99 (111) Pulse Ox 95 97 O2 Delivery Room Air Room Air Room Air Capillary Refill : ECG Comment Sinus rhythm, possible left atrial enlargement, borderline EKG, 85 bpm, QRS duration 86 MS, QTc 390 MS Departure Communication (PCP) Patient presents ED with URI symptoms. History of COPD. Patient with expiratory wheezing bilateral. Was given Solu-Medrol and DuoNeb breathing treatment with improvement. Chest x-ray was negative for pneumonia. COVID influenza was negative at the clinic. Lab work was otherwise unremarkable. EKG without evidence of ST elevation or depression. Normal troponin here. Chest pain is appears to be secondary to her cough. Nonspecific chest pain. Denies the feeling of someone sitting on her chest. No numbness and tingling in her extremity without nausea. She not diaphoretic patient states she feels much better. Appears to be a COPD exacerbation. Will discharge short burst steroids and Z-Atif for her COPD exacerbation. Continue with breathing treatments at home. If any worsening symptoms such as difficulty breathing, chest pain, tightness to return back to ED. Follow-up your PCP in 2 to 3 days for reevaluation. Impression Primary Impression: COPD exacerbation Disposition: HOME, SELF-CARE Condition: Stable Departure-Patient Inst. Decision time for Depature: 13:54 Referrals: EMANUEL MASON MD (PCP/Family) Primary Care Physician Patient Instructions: Upper Respiratory Infection ED Scripts Prednisone (Prednisone) 50 Mg Tab 50 MG PO DAILY for 5 Days, #5 TAB Prov: LUCAS SOUZA 01/31/22 Azithromycin (Azithromycin) 250 Mg Tablet 250 MG PO UD, #6 TAB TAKE 2 TABLETS ON DAY ONE THEN TAKE 1 TABLET DAILY FOR FOUR MORE DAYS Prov: LUCAS SOUZA 01/31/22 LUCAS SOUZA Jan 31, 2022 12:50
--- NOTE | 2022-01-31 12:59 | Diagnostic Imaging Report ---
INDICATION: Shortness of breath, congestion, headache, body aches.. TECHNIQUE: Single view chest 6:00 PM. CORRELATION STUDY: 12/10/2021 FINDINGS: The heart size, mediastinal configuration and pulmonary vascularity are within normal limits. The lungs are clear with no consolidating infiltrate. There is no significant effusion or pneumothorax. IMPRESSION: 1. Negative appearing single view chest. Dictated by: Dictated on workstation # [id number]
[2022-01-31] MEDS ORDERED: RT-ALBUTEROL/IPRATROPIUM 3 ML (DUONEB) VIAL INH ONE (13:00)
[2022-01-31 13:33] LABS: BASOPHILS # (AUTO) 0.1 10^3/uL (0.0-0.1); BASOPHILS % (AUTO) 1 % (0-10); EOSINOPHILS # (AUTO) 0.1 10^3/uL (0.0-0.3); EOSINOPHILS % (AUTO) 1 % (0-10); HEMATOCRIT 38 % (35-52); HEMOGLOBIN 12.9 g/dL (11.5-16.0); LYMPHOCYTES % (AUTO) 17 % (12-44); MEAN CORPUSCULAR HEMOGLOBIN 28 pg (25-34); MEAN CORPUSCULAR HGB CONC 34 g/dL (32-36); MEAN CORPUSCULAR VOLUME 83 fL (80-99); MEAN PLATELET VOLUME 9.6 fL (9.0-12.2); MONOCYTES % (AUTO) 9 % (0-12); NEUTROPHILS # (AUTO) 8.1 10^3/uL (1.8-7.8); NEUTROPHILS % (AUTO) 72 % (42-75); PLATELET COUNT 328 10^3/uL (130-400); WHITE BLOOD COUNT 11.3 10^3/uL (4.3-11.0)
[2022-01-31 13:36] LABS: ALBUMIN 4.2 GM/DL (3.2-4.5); CHLORIDE 107 MMOL/L (98-107); POTASSIUM 3.7 MMOL/L (3.6-5.0); SODIUM 140 MMOL/L (135-145)
[2022-01-31 13:37] LABS: CALCIUM 9.1 MG/DL (8.5-10.1)
[2022-01-31 13:38] LABS: GLUCOSE 85 MG/DL (70-105)
[2022-01-31 13:39] LABS: TOTAL PROTEIN 7.9 GM/DL (6.4-8.2)
[2022-01-31 13:40] LABS: BILIRUBIN,TOTAL 0.3 MG/DL (0.1-1.0); CARBON DIOXIDE 18 MMOL/L (21-32)
[2022-01-31 13:42] LABS: ALKALINE PHOSPHATASE 97 U/L (40-136); CREATININE SERUM 0.76 MG/DL (0.60-1.30); GFR ESTIMATED 104
[2022-01-31 13:43] LABS: BUN/CREATININE RATIO 12
[2022-01-31 13:45] LABS: ALANINE AMINOTRANSFERASE 17 U/L (0-55)
[2022-01-31] MEDS ORDERED: AZIT250T12 PO (13:54)
[2022-01-31] MEDS ORDERED: PRD50T PO (13:54)
[2022-01-31 14:00] VITALS: BP 131/93
== END 2022-01-31 14:01 | disposition home or self-care (01) ==
LOC: EDUNIT# 12:16 → ER 12:19
DX: J44.1 Chronic obstructive pulmonary disease with (acute) exacerbation (principal); Z20.822 Contact with and (suspected) exposure to COVID-19
CPT/HCPCS: 36415; 71045; 80053; 84484; 85025; 93005; 94640

== ENCOUNTER 2023-01-08 11:54 | Emergency (ER) | payer SELFPAY ==
[~2023-01-08] VITALS: Ht 154.9 cm; Wt 88.9 kg
[~2023-01-08 11:54] MED LIST changes: +AZIT250T12 PO; +PRD50T PO
[2023-01-08 12:01] VITALS: BP 119/79
--- NOTE | 2023-01-08 12:26 | ED Lower Extremity ---
General Chief Complaint: Lower Extremity Stated Complaint: FEET SWELLING | Nursing Triage Note: PT AMBULATE TO TRIAGE WITH C/O BILAT FEET SWELLING X3 DAYS. Source: patient Exam Limitations: no limitations (JORDYN PEARCE APRN) History of Present Illness Date Seen by Provider: Jan 08, 2023 Time Seen by Provider: 12:06 Initial Comments 37-year-old female presents to the ER with reports of bilateral swelling of her feet for the last 3 days. She has regurgitation of the tricuspid valve due to IV drug use. When asked about shortness of air, patient states that her shortness of air feels normal for her due to her history of COPD. But her mother states that patient becomes winded easily with exertion and at rest. Patient reports intermittent left upper back numbness with concurrent chest pain. States this occurs most every day. Last episode was yesterday. She denies fevers, cough, pain, nausea, vomiting, diarrhea. (JORDYN PEARCE APRN) Allergies and Home Medications Allergies Coded Allergies: No Known Drug Allergies (Unverified , 01/31/22) Patient Home Medication List Home Medication List Reviewed: Yes (JORDYN PEARCE APRN) Azithromycin (Azithromycin) 250 Mg Tablet, 250 MG PO UD Prescribed by: ADELE HENRY on 01/31/22 1354 Cyclobenzaprine HCl (Cyclobenzaprine HCl) 10 Mg Tablet, 10 MG PO Q8H PRN for SPASMS Prescribed by: EMELY KABA on 12/02/20 0946 Methocarbamol (Robaxin-750) 750 Mg Tablet, 750 MG PO Q4H PRN for PAIN-SEVERE (8- 10) Prescribed by: ESA MANUEL on 07/10/20326 Methocarbamol (Robaxin-750) 750 Mg Tablet, 750 MG PO Q6H PRN for PAIN-MODERATE (5-7) Prescribed by: FRANK TOWNSEND on 07/12/201814 Prednisone (Prednisone) 20 Mg Tab, 40 MG PO DAILY Prescribed by: ESA MANUEL on 07/10/20326 Prednisone (Prednisone) 20 Mg Tab, 40 MG PO DAILY Prescribed by: FRANK TOWNSEND on 07/12/201814 Prednisone (Prednisone) 50 Mg Tab, 50 MG PO DAILY Prescribed by: ADELE HENRY on 01/31/22 1354 Review of Systems Constitutional: see HPI (JORDYN PEARCE APRN) Past Mmhygdl-Vmxsjx-Wwqkro Hx Patient Social History Tobacco Use?: Yes Smoking Status: Heavy Tobacco Smoker Smokeless Tobacco Frequency: Never a User Use of E-Cig and/or Vaping dev: No Use of E-Cig and/or Vaping Aashish: Never a User Substance use?: Yes Substance type: Marijuana Substance frequency: Daily Alcohol Use?: Yes Alcohol Frequency: Once in a while Pt feels they are or have been: No (JORDYN PEARCE APRN) Immunizations Up To Date First/Initial COVID19 Vaccinat: 2020 Second COVID19 Vaccination Andrew: 2020 (JORDYN PEARCE APRN) Seasonal Allergies Seasonal Allergies: No (JORDYN PEARCE APRN) Past Medical History Surgery/Hospitalization HX: FEBRUARY 05 HAD OMI REMOVED. PNEUMONIA, ENDOCARDITIS, COPD, TRICUSPID REGURGITATION. 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: IUD Genitourinary: No Gastrointestinal: Yes (HEPATITIS C) Hepatitis Musculoskeletal: Yes (LEFT FEMUR OMI/SCREWS AGE 16; LUMBAR DISC DISEASE) Degenerate Disk Disease, Chronic Back Pain, Fractures Endocrine: No HEENT: No Cancer: No Psychosocial: No Integumentary: No (JORDYN PEARCE APRN) Family Medical History No Pertinent Family Hx (JORDYN PEARCE APRN) Physical Exam Vital Signs Vital Signs - First Documented 01/08/23 12:01 Temp 36.7 Pulse 100 Resp 17 B/P (MAP) 119/79 (92) O2 Delivery Room Air (MIKE WILKERSON MD) Vital Signs Capillary Refill : Less Than 3 Seconds (JORDYN PEARCE APRN) Height, Weight, BMI Height: 5'0" Weight: 130lbs. oz. 58.885882jd; 37.00 BMI Method:Stated General Appearance: WD/WN, no apparent distress Neck: supple, normal inspection Cardiovascular: regular rate, rhythm Respiratory: lungs clear, normal breath sounds, no respiratory distress, no accessory muscle use Feet: bilateral foot swelling (Nonpitting), bilateral foot other (Cap refill less than 2 seconds, sensation intact distally, pulses intact) Neurologic/Psychiatric: alert, normal mood/affect Skin: normal color, warm/dry (JORDYN PEARCE APRN) Progress/Results/Core Measures Results/Orders Lab Results Laboratory Tests Test 01/08/23 12:33 Range/Units White Blood Count 12.8 H 4.3-11.0 10^3/uL Red Blood Count 4.01 3.80-5.11 10^6/uL Hemoglobin 12.1 11.5-16.0 g/dL Hematocrit 36 35-52 % Mean Corpuscular Volume 89 80-99 fL Mean Corpuscular Hemoglobin 30 25-34 pg Mean Corpuscular Hemoglobin Concent 34 32-36 g/dL Red Cell Distribution Width 16.3 H 10.0-14.5 % Platelet Count 299 130-400 10^3/uL Mean Platelet Volume 9.7 9.0-12.2 fL Immature Granulocyte % (Auto) 1 % Neutrophils (%) (Auto) 63 42-75 % Lymphocytes (%) (Auto) 26 12-44 % Monocytes (%) (Auto) 8 0-12 % Eosinophils (%) (Auto) 2 0-10 % Basophils (%) (Auto) 1 0-10 % Neutrophils # (Auto) 8.0 H 1.8-7.8 10^3/uL Lymphocytes # (Auto) 3.3 1.0-4.0 10^3/uL Monocytes # (Auto) 1.0 0.0-1.0 10^3/uL Eosinophils # (Auto) 0.2 0.0-0.3 10^3/uL Basophils # (Auto) 0.1 0.0-0.1 10^3/uL Immature Granulocyte # (Auto) 0.1 0.0-0.1 10^3/uL Sodium Level 141 135-145 MMOL/L Potassium Level 3.7 3.6-5.0 MMOL/L Chloride Level 110 H 98-107 MMOL/L Carbon Dioxide Level 25 21-32 MMOL/L Anion Gap 6 5-14 MMOL/L Blood Urea Nitrogen 8 7-18 MG/DL Creatinine 0.79 0.60-1.30 MG/DL Estimat Glomerular Filtration Rate 99 BUN/Creatinine Ratio 10 Glucose Level 114 H 70-105 MG/DL Calcium Level 9.3 8.5-10.1 MG/DL Corrected Calcium 9.5 8.5-10.1 MG/DL Magnesium Level 1.8 1.6-2.4 MG/DL Total Bilirubin 0.3 0.1-1.0 MG/DL Aspartate Amino Transf (AST/SGOT) 22 5-34 U/L Alanine Aminotransferase (ALT/SGPT) 15 0-55 U/L Alkaline Phosphatase 86 40-136 U/L B-Type Natriuretic Peptide 26.6 <100.0 PG/ML Total Protein 7.2 6.4-8.2 GM/DL Albumin 3.8 3.2-4.5 GM/DL (MIKE WILKERSON MD) Vital Signs/I&O 01/08/23 12:01 Temp 36.7 Pulse 100 Resp 17 B/P (MAP) 119/79 (92) O2 Delivery Room Air (MIKE WILKERSON MD) Blood Pressure Mean: 92 Progress Progress Note : Progress Note Patient seen and evaluated, resting comfortably in bed, no acute distress. Based on exam and symptoms, concern for heart failure. Work-up initiated including CBC, CMP, magnesium, BNP, chest x-ray, EKG. Considered troponin, but patient has not had chest pain since yesterday. Previous visits reviewed. Echo report from 12/10/2021 shows EF of 60 to 65%. Mild-moderate tricuspid regurgitation. Labs reviewed. CBC shows elevated WBC 12.8. CMP shows slightly elevated chloride 110 slightly elevated glucose 114. BNP 26.6. Magnesium normal 1.8. Normal kidney and liver function. Chest x-ray reviewed, negative for acute cardiopulmonary process. Results discussed with patient. Informed patient that feet swelling could be related to her heart, and that she needs to establish with a new rn wellness since her rn wellness, Dr. Roe, no longer works h ere. Informed patient that she can try to wear compression stockings to help with swelling. Instructed to elevate feet is much as possible. Discharge instructions and return precautions provided. (JORDYN PEARCE APRN) Diagnostic Imaging Diagonstic Imaging: Xray Plain Films/CT/US/NM/MRI: chest Comments [facility], [place] NAME: ALLIEERBRINDA Sunni [facility] REC#: [id number] PT STATUS: REG ER : 1985 PHYSICIAN: JORDYN PEARCE APRN ADMIT DATE: 01/08/23/ER Signed Date of Exam:01/08/23 CHEST PA/LAT (2 VIEW) INDICATION: Shortness of breath and feet swelling. PA and lateral chest obtained at 12:40 p.m. Heart and mediastinal silhouette are normal in appearance. The lungs are clear. There is no pneumothorax or pleural fluid. IMPRESSION: Negative chest. Dictated by: Dictated on workstation # [id number] Dict: 01/08/23 1243 Trans: 01/08/23 1246 [id number] Interpreted by: YENNY GUARDADO MD Electronically signed by: YENNY GUARDADO MD 01/08/23 1246 (JORDYN PEARCE APRN) Departure Impression Primary Impression: Lower extremity edema Disposition: 01 HOME, SELF-CARE Condition: Stable Departure-Patient Inst. Decision time for Depature: 13:40 (JORDYN PEARCE APRN) Referrals: WESTON SUGGS MD, JULIE A MD (PCP/Family) Primary Care Physician Patient Instructions: Dependent Edema (DC) Add. Discharge Instructions: Call Dr. Suggs's office today to schedule a follow-up appointment. Return for severe shortness of breath, chest pain, significant swelling, or any other new, concerning, or worsening symptoms. All discharge instructions reviewed with patient and/or family. Voiced understanding. ATTENDING PHYSICIAN NOTE: I was physically present as attending physician in the emergency department during the care of this patient, but I was not directly involved in the decision making or delivery of care for this patient. (MIKE WILKERSON MD) JORDYN PEARCE APRN Jan 08, 2023 12:26 MIKE WILKERSON MD Jan 11, 2023 10:46
[2023-01-08 12:39] LABS: BASOPHILS # (AUTO) 0.1 10^3/uL (0.0-0.1); BASOPHILS % (AUTO) 1 % (0-10); EOSINOPHILS # (AUTO) 0.2 10^3/uL (0.0-0.3); EOSINOPHILS % (AUTO) 2 % (0-10); HEMATOCRIT 36 % (35-52); HEMOGLOBIN 12.1 g/dL (11.5-16.0); LYMPHOCYTES # (AUTO) 3.3 10^3/uL (1.0-4.0); LYMPHOCYTES % (AUTO) 26 % (12-44); MEAN CORPUSCULAR HEMOGLOBIN 30 pg (25-34); MEAN CORPUSCULAR HGB CONC 34 g/dL (32-36); MEAN CORPUSCULAR VOLUME 89 fL (80-99); MEAN PLATELET VOLUME 9.7 fL (9.0-12.2); MONOCYTES % (AUTO) 8 % (0-12); NEUTROPHILS % (AUTO) 63 % (42-75); PLATELET COUNT 299 10^3/uL (130-400); WHITE BLOOD COUNT 12.8 10^3/uL (4.3-11.0)
--- NOTE | 2023-01-08 12:45 | Diagnostic Imaging Report ---
INDICATION: Shortness of breath and feet swelling. PA and lateral chest obtained at 12:40 p.m. Heart and mediastinal silhouette are normal in appearance. The lungs are clear. There is no pneumothorax or pleural fluid. IMPRESSION: Negative chest. Dictated by: Dictated on workstation # [id number]
[2023-01-08 12:57] LABS: ALBUMIN 3.8 GM/DL (3.2-4.5); POTASSIUM 3.7 MMOL/L (3.6-5.0)
[2023-01-08 12:59] LABS: CALCIUM 9.3 MG/DL (8.5-10.1)
[2023-01-08 13:00] LABS: TOTAL PROTEIN 7.2 GM/DL (6.4-8.2)
[2023-01-08 13:02] LABS: BILIRUBIN,TOTAL 0.3 MG/DL (0.1-1.0)
[2023-01-08 13:03] LABS: CREATININE SERUM 0.79 MG/DL (0.60-1.30)
[2023-01-08 13:06] LABS: MAGNESIUM 1.8 MG/DL (1.6-2.4)
== END 2023-01-08 13:53 | disposition home or self-care (01) ==
LOC: EDUNIT# 11:54 → ER 11:57
DX: R60.0 Localized edema (principal); R06.02 Shortness of breath; D72.829 Elevated white blood cell count, unspecified; F17.290 Nicotine dependence, other tobacco product, uncomplicated
CPT/HCPCS: 36415; 71046; 80053; 83735; 83880; 85025; 93005

== ENCOUNTER 2023-01-27 10:54 | Emergency (ER) | payer SELFPAY ==
[~2023-01-27] VITALS: Ht 154 cm; Wt 89.0 kg
[2023-01-27] MEDS ORDERED: NS IV 1000 ML 1,000 ML IV STA (11:13)
[2023-01-27] MEDS ORDERED: LORazepam INJ 2 MG/ML (ATIVAN) VIAL IVP ONE (11:15)
--- NOTE | 2023-01-27 11:17 | ED General ---
General Chief Complaint: Psych/Social Disorder Stated Complaint: SEIZURE | SHAKING Source of Information: Patient Exam Limitations: No Limitations History of Present Illness Date Seen by Provider: Jan 27, 2023 Time Seen by Provider: 11:14 Initial Comments Patient is a 37-year-old female with a history of tricuspid regurgitation, bipol ar who presents to ED for shakiness, heart palpitations, body pain and cramping. She states about 30 minutes ago she was at home sitting on her bed. She reports that her entire body was shaking her face became numb. EMS was called. Patient states her arms and hands were cramping. She started breathing fast with heart palpitations and chest discomfort. Associate shortness of breath. She reports dry heaving without any vomiting. She does drink about a pint of liquor daily. She has not drink in today. Denies of any drug use. Patient states that she is starting to get more range of motion of her extremities. She still does feel slightly shaky. She reports generalized weakness. She denies of any abdominal pain, vomiting, diarrhea, headache, visual changes, unilateral muscle weakness or sensory changes. Denies history of coronary artery disease, COPD, asthma or diabetes. Patient stopped taking her gabapentin and Latuda 1 month ago. She denies of any convulsions or any postictal state. Patient drove to the ED by POV Allergies and Home Medications Allergies Coded Allergies: No Known Drug Allergies (Unverified , 01/31/22) Patient Home Medication List Home Medication List Reviewed: Yes Azithromycin (Azithromycin) 250 Mg Tablet, 250 MG PO UD Prescribed by: ADELE HENRY on 01/31/22 1354 Cyclobenzaprine HCl (Cyclobenzaprine HCl) 10 Mg Tablet, 10 MG PO Q8H PRN for SPASMS Prescribed by: EMELY KABA on 12/02/20 0946 Methocarbamol (Robaxin-750) 750 Mg Tablet, 750 MG PO Q4H PRN for PAIN-SEVERE (8- 10) Prescribed by: ESA MANUEL on 07/10/20 0327 Methocarbamol (Robaxin-750) 750 Mg Tablet, 750 MG PO Q6H PRN for PAIN-MODERATE (5-7) Prescribed by: FRANK TOWNSEND on 07/12/20 181 Prednisone (Prednisone) 20 Mg Tab, 40 MG PO DAILY Prescribed by: ESA MANUEL on 07/10/20 0327 Prednisone (Prednisone) 20 Mg Tab, 40 MG PO DAILY Prescribed by: FRANK TOWNSEND on 07/12/20 1815 Prednisone (Prednisone) 50 Mg Tab, 50 MG PO DAILY Prescribed by: ADELE HENRY on 01/31/22 1354 Review of Systems Review of Systems Constitutional: No chills, No diaphoresis, No fever, No malaise; weakness EENTM: No ear pain, No blurred vision, No double vision Respiratory: No cough, No dyspnea on exertion Cardiovascular: chest pain, palpitations Gastrointestinal: No abdominal pain, No diarrhea; nausea Genitourinary: No decreased output, No discharge Musculoskeletal: No back pain, No joint pain Skin: No change in color, No change in hair/nails All Other Systems Reviewed Negative Unless Noted: Yes Past [id number] Hx Immunizations Up To Date First/Initial COVID19 Vaccinat: 2020 Second COVID19 Vaccination Andrew: 2020 Seasonal Allergies Seasonal Allergies: No Past Medical History Surgery/Hospitalization HX: FEBRUARY 05 HAD OMI REMOVED. PNEUMONIA, ENDOCARDITIS, COPD, TRICUSPID REGURGITATION. Surgeries: Yes (LEFT FEMUR OMI/PINS AGE 16) Orthopedic Respiratory: No Cardiac: Yes (TRICUSPID ENDOCARDITIS 2018) Endocarditis, Valvular Heart Disease Neurological: No [employer] History: IUD Genitourinary: No Gastrointestinal: Yes (HEPATITIS C) Hepatitis Musculoskeletal: Yes (LEFT FEMUR OMI/SCREWS AGE 16; LUMBAR DISC DISEASE) Degenerate Disk Disease, Chronic Back Pain, Fractures Endocrine: No HEENT: No Cancer: No Psychosocial: No Integumentary: No Family Medical History No Pertinent Family Hx Physical Exam Vital Signs Vital Signs - First Documented 01/27/23 11:05 Temp 36.3 Pulse 107 Resp 16 B/P (MAP) 150/101 (117) Pulse Ox 97 O2 Delivery Room Air Capillary Refill : Height, Weight, BMI Height: 5'0" Weight: 130lbs. oz. 58.536250nz; 37.00 BMI Method:Stated General Appearance: No Apparent Distress, WD/WN Eyes: Bilateral Eye Normal Inspection, Bilateral Eye PERRL, Bilateral Eye EOMI HEENT: PERRL/EOMI, TMs Normal, Normal ENT Inspection, Pharynx Normal Neck: Full Range of Motion, Normal Inspection, Non Tender, Supple Respiratory: Chest Non Tender, Lungs Clear, Normal Breath Sounds, No Accessory Muscle Use, No Respiratory Distress Cardiovascular: No Edema, No Gallop, No JVD, Tachycardia Gastrointestinal: Normal Bowel Sounds, No Organomegaly, No Pulsatile Mass, Non Tender Back: Normal Inspection, No CVA Tenderness, No Vertebral Tenderness Extremity: Normal Capillary Refill, Normal Inspection, Normal Range of Motion, Non Tender Neurologic/Psychiatric: Alert, Oriented x3, No Motor/Sensory Deficits, Normal Mood/Affect, director personal II-XII Norm as Tested Skin: Normal Color Progress/Results/Core Measures Suspected Sepsis SIRS Temperature: Pulse: Respiratory Rate: Laboratory Tests 01/27/23 12:01: White Blood Count 15.1H Blood Pressure / Mean: Laboratory Tests 01/27/23 12:01: Creatinine 0.89, Platelet Count 394, Total Bilirubin 0.6 Results/Orders Lab Results Laboratory Tests Test 01/27/23 11:18 01/27/23 12:01 Range/Units Urine Color YELLOW Urine Clarity CLOUDY Urine pH 6.5 5-9 Urine Specific [place] 1.025 H 1.016-1.022 Urine Protein 2+ H NEGATIVE Urine Glucose (UA) NEGATIVE NEGATIVE Urine Ketones NEGATIVE NEGATIVE Urine Nitrite NEGATIVE NEGATIVE Urine Bilirubin NEGATIVE NEGATIVE Urine Urobilinogen 0.2 < = 1.0 MG/DL Urine Leukocyte Esterase NEGATIVE NEGATIVE Urine RBC (Auto) 2+ H NEGATIVE Urine RBC 5-10 H /HPF Urine WBC NONE /HPF Urine Squamous Epithelial Cells 5-10 /HPF Urine Crystals NONE /LPF Urine Bacteria NEGATIVE /HPF Urine Casts NONE /LPF Urine Mucus SMALL H /LPF Urine Culture Indicated NO Urine Opiates Screen NEGATIVE NEGATIVE Urine Oxycodone Screen NEGATIVE NEGATIVE Urine Methadone Screen NEGATIVE NEGATIVE Urine Propoxyphene Screen NEGATIVE NEGATIVE Urine Barbiturates Screen NEGATIVE NEGATIVE Ur Tricyclic Antidepressants Screen POSITIVE H NEGATIVE Urine Phencyclidine Screen NEGATIVE NEGATIVE Urine Amphetamines Screen NEGATIVE NEGATIVE Urine Methamphetamines Screen NEGATIVE NEGATIVE Urine Benzodiazepines Screen NEGATIVE NEGATIVE Urine Cocaine Screen NEGATIVE NEGATIVE Urine Cannabinoids Screen POSITIVE H NEGATIVE White Blood Count 15.1 H 4.3-11.0 10^3/uL Red Blood Count 4.92 3.80-5.11 10^6/uL Hemoglobin 14.4 11.5-16.0 g/dL Hematocrit 43 35-52 % Mean Corpuscular Volume 87 80-99 fL Mean Corpuscular Hemoglobin 29 25-34 pg Mean Corpuscular Hemoglobin Concent 34 32-36 g/dL Red Cell Distribution Width 16.7 H 10.0-14.5 % Platelet Count 394 130-400 10^3/uL Mean Platelet Volume 9.9 9.0-12.2 fL Immature Granulocyte % (Auto) 0 % Neutrophils (%) (Auto) 76 H 42-75 % Lymphocytes (%) (Auto) 14 12-44 % Monocytes (%) (Auto) 8 0-12 % Eosinophils (%) (Auto) 0 0-10 % Basophils (%) (Auto) 1 0-10 % Neutrophils # (Auto) 11.5 H 1.8-7.8 10^3/uL Lymphocytes # (Auto) 2.1 1.0-4.0 10^3/uL Monocytes # (Auto) 1.3 H 0.0-1.0 10^3/uL Eosinophils # (Auto) 0.1 0.0-0.3 10^3/uL Basophils # (Auto) 0.1 0.0-0.1 10^3/uL Immature Granulocyte # (Auto) 0.1 0.0-0.1 10^3/uL Neutrophils % (Manual) 74 % Lymphocytes % (Manual) 20 % Monocytes % (Manual) 6 % Eosinophils % (Manual) 0 % Basophils % (Manual) 0 % Band Neutrophils 0 % Blood Morphology Comment NORMAL Sodium Level 139 135-145 MMOL/L Potassium Level 4.0 3.6-5.0 MMOL/L Chloride Level 107 98-107 MMOL/L Carbon Dioxide Level 18 L 21-32 MMOL/L Anion Gap 14 5-14 MMOL/L Blood Urea Nitrogen 8 7-18 MG/DL Creatinine 0.89 0.60-1.30 MG/DL Estimat Glomerular Filtration Rate 86 BUN/Creatinine Ratio 9 Glucose Level 102 70-105 MG/DL Calcium Level 9.3 8.5-10.1 MG/DL Corrected Calcium 9.1 8.5-10.1 MG/DL Total Bilirubin 0.6 0.1-1.0 MG/DL Aspartate Amino Transf (AST/SGOT) 29 5-34 U/L Alanine Aminotransferase (ALT/SGPT) 23 0-55 U/L Alkaline Phosphatase 97 40-136 U/L Troponin I < 0.028 <0.028 NG/ML Total Protein 8.0 6.4-8.2 GM/DL Albumin 4.2 3.2-4.5 GM/DL Serum Alcohol < 10 <10 MG/DL My Orders Orders - LUCAS SOUZA Cbc With Automated Diff (01/27/23 11:11) Comprehensive Metabolic Panel (01/27/23 11:11) Alcohol (01/27/23 11:11) Lorazepam Injection (Ativan Injection) (01/27/23 11:15) Ua Culture If Indicated (01/27/23 11:11) Drug Screen Stat (Urine) (01/27/23 11:11) Ekg Tracing (01/27/23 11:11) Troponin I [place] (01/27/23 11:11) Iv/Invasive Line Insertion .IV INSERT (01/27/23 11:11) Ns Iv 1000 Ml (Sodium Chloride 0.9%) (01/27/23 11:13) Manual Differential (01/27/23 12:01) Medications Given in ED Current Medications Medications Dose Ordered Sig/[place] Route Start Time Stop Time Status Last Admin Dose Admin Lorazepam 1 mg ONCE ONCE IVP 01/27/23 11:15 01/27/23 11:16 DC 01/27/23 12:00 1 MG Vital Signs/I&O 01/27/23 11:05 Temp 36.3 Pulse 107 Resp 16 B/P (MAP) 150/101 (117) Pulse Ox 97 O2 Delivery Room Air Capillary Refill : ECG Comment Sinus tachycardia, 102 bpm, QRS duration 76 MS, QTc 380 MS. Departure Communication (PCP) Reviewed previous ER visits, H&P, lab testing. Differential diagnosis panic attack, alcohol withdrawal, seizure. On arrival she has no evidence of seizure- like activity. She states she feels shaky. At the time of her episode she had facial numbness and cramping of her upper and lower extremities. She is able to ambulate without assistance. She drinks daily about a pint of liquor daily. Stopped her Latuda and gabapentin about 1 month ago. Due to her current complaint EKG, general lab work, urinalysis with drug screen and alcohol level. She was started on a liter of fluid. She states she feels anxious. She received 1 mg of IV Ativan with improvement. She was slightly tachycardic EKG without evidence of ST elevation, depression or arrhythmia. Drug screen positive for THC, tricyclic's. Urinalysis negative for infection but did note some hematuria. She denies of any abdominal pain or flank pain. CBC showed elevated white blood count of 15 nonspecific. Chemistry grossly unremarkable. Due to the chest pain and pressure troponin was added which was negative. She has no focal neural deficits. No strokelike symptoms. Does does not appear like seizure-like activity. Concerned that she likely had a panic attack. According to family she has been under a lot of stress. She has been extremely anxious. She does have bipolar. Recommend consider. restarting her gabapentin and Latuda. Discussed breathing mechanisms. Recommend staying hydrated. Rest for the next 1 to 2 days. Return precaution were discussed such as worsening chest pain, headache, unilateral weakness. Patient is currently asymptomatic Impression Primary Impression: Anxious appearance Disposition: 01 HOME, SELF-CARE Condition: Stable Departure-Patient Inst. Decision time for Depature: 12:52 Referrals: [facility]/EMANUEL BLAND MD (PCP/Family) Primary Care Physician Patient Instructions: Anxiety, Adult (DC) Add. Discharge Instructions: Recommend breathing techniques at home. Follow-up your PCP in the in the next 1 to 2 days. Recommend starting her Latuda and gabapentin. If any worsening symptoms return back to ED. All discharge instructions reviewed with patient and/or family. Voiced understanding. LUCAS SOUZA Jan 27, 2023 11:17
[2023-01-27 11:26] LABS: BILIRUBIN,URINE NEGATIVE (NEGATIVE); CLARITY,URINE CLOUDY; COLOR,URINE YELLOW; GLUCOSE, URINE (UA) NEGATIVE (NEGATIVE); KETONES,URINE NEGATIVE (NEGATIVE); LEUKOCYTE ESTERASE ,URINE NEGATIVE (NEGATIVE); NITRITE,URINE NEGATIVE (NEGATIVE); PH,URINE 6.5 (5-9); PROTEIN,URINE 2+ (NEGATIVE)
[2023-01-27 11:35] LABS: BACTERIA,URINE NEGATIVE /HPF
[2023-01-27 11:55] LABS: AMPHETAMINE SCREEN, URINE NEGATIVE (NEGATIVE); BARBITURATE SCREEN URINE NEGATIVE (NEGATIVE); BENZODIAZEPINES SCREEN URINE NEGATIVE (NEGATIVE); CANNABINOID SCREEN, URINE POSITIVE (NEGATIVE); COCAINE SCREEN URINE NEGATIVE (NEGATIVE); METHADONE STAT NEGATIVE (NEGATIVE); OPIATE SCREEN URINE NEGATIVE (NEGATIVE); OXYCODONE STAT NEGATIVE (NEGATIVE); PROPOXYPHENE STAT NEGATIVE (NEGATIVE); TRICYCLIC ANTIDEPRESSANTS SCRE POSITIVE (NEGATIVE)
[2023-01-27 12:06] LABS: BASOPHILS # (AUTO) 0.1 10^3/uL (0.0-0.1); BASOPHILS % (AUTO) 1 % (0-10); EOSINOPHILS # (AUTO) 0.1 10^3/uL (0.0-0.3); EOSINOPHILS % (AUTO) 0 % (0-10); HEMATOCRIT 43 % (35-52); HEMOGLOBIN 14.4 g/dL (11.5-16.0); LYMPHOCYTES # (AUTO) 2.1 10^3/uL (1.0-4.0); LYMPHOCYTES % (AUTO) 14 % (12-44); MEAN CORPUSCULAR HEMOGLOBIN 29 pg (25-34); MEAN CORPUSCULAR HGB CONC 34 g/dL (32-36); MEAN CORPUSCULAR VOLUME 87 fL (80-99); MEAN PLATELET VOLUME 9.9 fL (9.0-12.2); MONOCYTES # (AUTO) 1.3 10^3/uL (0.0-1.0); MONOCYTES % (AUTO) 8 % (0-12); NEUTROPHILS # (AUTO) 11.5 10^3/uL (1.8-7.8); NEUTROPHILS % (AUTO) 76 % (42-75); PLATELET COUNT 394 10^3/uL (130-400); WHITE BLOOD COUNT 15.1 10^3/uL (4.3-11.0)
[2023-01-27 12:16] LABS: ALBUMIN 4.2 GM/DL (3.2-4.5); CHLORIDE 107 MMOL/L (98-107); SODIUM 139 MMOL/L (135-145)
[2023-01-27 12:18] LABS: CALCIUM 9.3 MG/DL (8.5-10.1)
[2023-01-27 12:19] LABS: GLUCOSE 102 MG/DL (70-105)
[2023-01-27 12:20] LABS: CARBON DIOXIDE 18 MMOL/L (21-32)
[2023-01-27 12:21] LABS: BILIRUBIN,TOTAL 0.6 MG/DL (0.1-1.0)
[2023-01-27 12:22] LABS: ALKALINE PHOSPHATASE 97 U/L (40-136)
[2023-01-27 12:23] LABS: CREATININE SERUM 0.89 MG/DL (0.60-1.30); GFR ESTIMATED 86
[2023-01-27 12:24] LABS: BUN/CREATININE RATIO 9
[2023-01-27 12:26] LABS: ALANINE AMINOTRANSFERASE 23 U/L (0-55)
[2023-01-27 12:33] LABS: BAND NEUTROPHILS 0 %; LYMPHOCYTES % (MANUAL) 20 %; MONOCYTES % (MANUAL) 6 %; NEUTROPHILS % (MANUAL) 74 %
[2023-01-27 12:34] LABS: BASOPHILS % (MANUAL) 0 %; EOSINOPHILS % (MANUAL) 0 %; RBC MORPH NORMAL
[2023-01-27 12:58] VITALS: BP 142/89
== END 2023-01-27 12:58 | disposition home or self-care (01) ==
LOC: EDUNIT# 10:54 → ER 10:55
DX: F41.9 Anxiety disorder, unspecified (principal); R31.9 Hematuria, unspecified; D72.829 Elevated white blood cell count, unspecified
CPT/HCPCS: 80053; 80306; 81000; 84484; 85007; 85027; 93005; 99284; G0480; 36415; 80320